=== PATIENT | male | born 1990 | race Caucasian/White ===

== ENCOUNTER 2016-09-05 23:15 | Inpatient (IN) | payer MEDICARE ==
--- NOTE | 2016-09-06 00:51 | HP ---
CIWA Score - CIWA Score Nausea/Vomitin Muscle Tremors: 4-Moderate,w/Arms Extend Anxiety: 3 Agitation: 2 Paroxysmal Sweats: 1-Minimal Palms Moist Orientation: 1-Uncertain about Date Tacttile Disturbances: 0-None Auditory Disturbances: 0-None Visual Disturbances: 0-None Headache: 2-Mild CIWA-Ar Total Score: 15 Admission ROS BHS - HPI Chief Complaint: WITHDRAWAL SYMPTOMS Allergies/Adverse Reactions: Allergies Allergy/AdvReac Type Severity Reaction Status Date / Time No Known Allergies Allergy Verified 02/19/16 02:05 History of Present Illness: 26 Y.O. MAN WITH A 6 YR HISTORY OF ALCOHOL DEPENDENCE IS SEEKING DETOX. HE IS CURRENTLY ON A MMTP. HE REPORTS HE DOES NOT HAVE A SIGNIFICANT PERIOD OF SOBRIETY. Exam Limitations: No Limitations - Ebola screening Have you traveled outside of the country in the last 21 days: No (N) Have you had contact with anyone from an Ebola affected area: No Do you have a fever: No - Review of Systems Constitutional: Chills EENT: reports: No Symptoms Reported Respiratory: reports: Shortness of Breath Cardiac: reports: No Symptoms Reported GI: reports: Constipated : reports: No Symptoms Reported Musculoskeletal: reports: No Symptoms Reported Integumentary: reports: No Symptoms Reported Neuro: reports: Tremors Endocrine: reports: No Symptoms Reported Hematology: reports: No Symptoms Reported Psychiatric: reports: Judgement Intact, Mood/Affect Appropiate, Orientated x3 Other Systems: Reviewed and Negative Patient History - Patient Medical History Hx Anemia: No Hx Asthma: No Hx Chronic Obstructive Pulmonary Disease (COPD): No Hx Cancer: No Hx Cardiac Disorders: No Hx Congestive Heart Failure: No Hx Hypertension: No Hx Hypercholesterolemia: No Hx Pacemaker: No HX Cerebrovascular Accident: No Hx Seizures: No Hx Dementia: No Hx Diabetes: No Hx Gastrointestinal Disorders: No Hx Liver Disease: No Hx Genitourinary Disorders: No Hx Sexually Transmitted Disorders: No Hx Renal Disease (ESRD): No Hx Thyroid Disease: No Hx Human Immunodeficiency Virus (HIV): No Hx Hepatitis C: Yes (NO TREATMENT ) Hx Depression: No Hx Suicide Attempt: No Hx Bipolar Disorder: No Hx Schizophrenia: No - Patient Surgical History Past Surgical History: No Hx Neurologic Surgery: No Hx Cataract Extraction: No Hx Cardiac Surgery: No Hx Lung Surgery: No Hx Breast Surgery: No Hx Breast Biopsy: No Hx Abdominal Surgery: No Hx Appendectomy: No Hx Cholecystectomy: No Hx Genitourinary Surgery: No Hx Section: No Hx Orthopedic Surgery: No Anesthesia Reaction: No - PPD History Previous Implant?: Yes Documented Results: Negative w/proof Implanted On Prior R Admission?: Yes Date: 04/26/15 Results: 0.0mm PPD to be Administered?: Yes - Reproductive History Patient is a Female of Child Bearing Age (11 -55 yrs old): No - Smoking Cessation Smoking history: Current every day smoker Have you smoked in the past 12 months: Yes Aproximately how many cigarettes per day: 4 Cigars Per Day: 0 Hx Chewing Tobacco Use: No Initiated information on smoking cessation: Yes 'Breaking Loose' booklet given: 09/06/16 - Substance & Tx. History Hx Alcohol Use: Yes Hx Substance Use: Yes (ON A MMTP ) Substance Use Type: Alcohol Hx Substance Use Treatment: Yes - Substances Abused Alcohol Route: Oral Frequency: Daily Amount used: 10 BOTTLES OF 18OZ BEER Age of first use: 19 Date of Last Use: 09/05/16 Family Disease History - Family Disease History Family Disease History: Other: Sister Admission Physical Exam BHS - Vital Signs Vital Signs: Last Vital Signs Temp Pulse Resp BP Pulse Ox 96.8 F L 99 H 17 127/87 09/06/16 02:07 09/06/16 02:07 09/06/16 02:07 09/06/16 02:07 - Physical General Appearance: Yes: Appropriately Dressed, Alcohol on Breath HEENTM: Yes: Hearing grossly Normal, Normal ENT Inspection, Normocephalic, Normal Voice Respiratory: Yes: Chest Non-Tender, Lungs Clear, Normal Breath Sounds Neck: Yes: No masses,lesions,Nodules, Trachea in good position Breast: Yes: Breast Exam Deferred Cardiology: Yes: Regular Rhythm, Regular Rate, S1, S2 Abdominal: Yes: Normal Bowel Sounds, Non Tender, Soft Genitourinary: Yes: Within Normal Limits Back: Yes: Normal Inspection Musculoskeletal: Yes: Within Normal Limits, Gait Steady Extremities: Yes: Normal Capillary Refill, Normal Inspection, Normal Range of Motion Neurological: Yes: endoscopy tech II-XII NML intact, Fully Oriented, Alert, Normal Mood/ Affect, Normal Response Integumentary: Yes: Normal Color, Dry, Warm Lymphatic: Yes: Within Normal Limits - Diagnostic (1) Alcohol dependence with uncomplicated withdrawal Current Visit: Yes Status: Chronic (2) Opioid dependence on agonist therapy Current Visit: Yes Status: Chronic Cleared for Admission [facility] - Detox or Rehab [facility] Level of Care: Medically Managed Detox Regimen/Protocol: Librium S Breath Alcohol Content Breath Alcohol Content: 0.154 Vital Signs - Vital Signs Vital Signs Refused: No Temperature: 96.8 F Temperature Source: Oral Pulse Rate: 99 Respiratory Rate: 17 Blood Pressure: 127/87 BP Location: Left Arm Blood Pressure Position: Sitting - Height Height: 5 ft 10 in - Weight Weight: 201 lb Weight Measurement Method: Standing Scale Body Mass Index (BMI): 28.8 Urine Drug Screen - Control Is Test Valid: Yes - Results Drug Screen Negative: No Urine Drug Screen Results: THC-Marijuana, GARCÍA-Cocaine, MTD-Methadone
[2016-09-06] MEDS ORDERED: MAGNESIUM CITRATE 300 ML BOTTLE PO PRN (00:55)
[2016-09-06] MEDS ORDERED: chlordiazePOXIDE HCL 25 MG CAPSULE PO PRN (00:55)
[2016-09-06] MEDS ORDERED: LOPERAMIDE HCL 2 MG CAPSULE PO PRN (00:55)
[2016-09-06] MEDS ORDERED: MAG HYDROX/AL HYDROX/SIMETH 30 ML UNIT-DOSE CUP PO PRN (00:55)
[2016-09-06] MEDS ORDERED: guaiFENesin/D-METHORPHAN HB 10 ML UNIT-DOSE CUPS PO PRN (00:55)
[2016-09-06] MEDS ORDERED: chlordiazePOXIDE HCL 25 MG CAPSULE PO ONE (00:55)
[2016-09-06] MEDS ORDERED: MAGNESIUM HYDROX 2400MG/30ML ORAL SUSPENSION 30 ML CUP PO PRN (00:55)
[2016-09-06] MEDS ORDERED: hydrOXYzine PAMOATE 50 MG CAPSULE (FP) PO PRN (00:55)
[2016-09-06] MEDS ORDERED: P-EPHED 60MG/TRIPROLIDI 2.5MG TABLET PO PRN (00:55)
[2016-09-06] MEDS ORDERED: ACETAMINOPHEN 325 MG TABLET (FP) PO PRN (00:55)
[2016-09-06] MEDS ORDERED: NICOTINE POLACRILEX 2 MG GUM BC PRN (00:55)
[2016-09-06] MEDS ORDERED: MENTHOL/PHENOL 1 EACH UD MM PRN (00:55)
[2016-09-06 01:20] VITALS: BMI 28.8
[2016-09-06] MEDS: chlordiazePOXIDE HCL 25 MG CAPSULE PO SCH ×4 (05:30→22:10)
[2016-09-06] MEDS: PRENATAL VITAMINS W/ FOLIC ACID TABLET (FP) PO SCH (10:17)
[2016-09-06] MEDS: NICOTINE 14 MG/24 HOURS TOPICAL PATCH TD SCH (10:18)
[2016-09-06] MEDS ORDERED: METHADONE HCL 10 MG TABLET PO ONE (10:22)
[2016-09-06] MEDS ORDERED: METHADONE 80 MG, METHADONE (DETOX) 20 MG PO ONE (10:45)
[2016-09-06 10:46] LABS: URINE APPEARANCE CLEAR; URINE BILIRUBIN NEGATIVE (NEGATIVE); URINE BLOOD NEGATIVE (NEGATIVE); URINE COLOR YELLOW; URINE GLUCOSE (UA) NEGATIVE (NEGATIVE); URINE KETONE NEGATIVE (NEGATIVE); URINE LEUK ESTERASE NEGATIVE (NEGATIVE); URINE NITRITE NEGATIVE (NEGATIVE); URINE PROTEIN NEGATIVE (NEGATIVE); URINE UROBILINOGEN NEGATIVE E.U./dl (0.2-1.0)
--- NOTE | 2016-09-06 11:28 | PN ---
S CIWA - CIWA Score Nausea/Vomitin Muscle Tremors: 3 Anxiety: 3 Agitation: 3 Paroxysmal Sweats: 1-Minimal Palms Moist Orientation: 0-Oriented Tacttile Disturbances: 1-Very Mild Itch/Numbness Auditory Disturbances: 1-Very Mild Visual Disturbances: 1-Very Mild Sensitivity Headache: 2-Mild CIWA-Ar Total Score: 18 BHS Progress Note (SOAP) Subjective: ALERT,IRRITABLE,ANXIOUS,INTERRUPTED SLEEP,TREMOR Objective: 09/06/16 11:27 Vital Signs Temperature 98.1 F 09/06/16 09:59 Pulse Rate 82 09/06/16 09:59 Respiratory Rate 20 09/06/16 09:59 Blood Pressure 133/84 09/06/16 09:59 O2 Sat by Pulse Oximetry (%) EKG NSR,NORMAL ECG Laboratory Last Values Urine Color Yellow 09/06/16 08:40 Urine Appearance Clear 09/06/16 08:40 Urine pH 5.0 (5.0-8.0) 09/06/16 08:40 Ur Specific [place] 1.014 (1.001-1.035) 09/06/16 08:40 Urine Protein Negative (NEGATIVE) 09/06/16 08:40 Urine Glucose (UA) Negative (NEGATIVE) 09/06/16 08:40 Urine Ketones Negative (NEGATIVE) 09/06/16 08:40 Urine Blood Negative (NEGATIVE) 09/06/16 08:40 Urine Nitrite Negative (NEGATIVE) 09/06/16 08:40 Urine Bilirubin Negative (NEGATIVE) 09/06/16 08:40 Urine Urobilinogen Negative E.U./dl (0.2-1.0) 09/06/16 08:40 Ur Leukocyte Esterase Negative (NEGATIVE) 09/06/16 08:40 LABS PENDING Assessment: 09/06/16 11:28 WITHDRAWAL SYMPTOM Plan: CONTINUE DETOX
[2016-09-06] MEDS ORDERED: METHADONE HCL 40 MG DISPERSABLE TABLET ONE (11:49)
[2016-09-06] MEDS ORDERED: METHADONE HCL 10 MG TABLET (FOR DETOX USE ONLY) ONE (11:49)
--- NOTE | 2016-09-06 18:19 | EKG ---
Test Reason : Blood Pressure : / mmHG Vent. Rate : 072 BPM Atrial Rate : 072 BPM P-R Int : 170 ms QRS Dur : 100 ms QT Int : 418 ms P-R-T Axes : 040 010 014 degrees QTc Int : 457 ms POOR DATA QUALITY, INTERPRETATION MAY BE ADVERSELY AFFECTED NORMAL SINUS RHYTHM NONSPECIFIC ST AND T WAVE ABNORMALITY NO PREVIOUS ECGS AVAILABLE Confirmed by JONNA RONQUILLO MD ([id number]) on 09/06/2016 6:18:54 PM Referred By: Confirmed By:JONNA RONQUILLO MD
[2016-09-06] MEDS: THIAMINE HCL 100 MG TABLET (FP) PO SCH (22:09)
[2016-09-06] MEDS: IBUPROFEN 400 MG TABLET (FP) PO PRN (22:11)
[2016-09-06] MEDS: diphenhydrAMINE HCL 50 MG CAPSULE PO PRN (22:19)
[2016-09-07] MEDS ORDERED: METHADONE HCL 10 MG TABLET (FOR DETOX USE ONLY) ONE (04:52)
[2016-09-07] MEDS ORDERED: METHADONE HCL 40 MG DISPERSABLE TABLET ONE (04:53)
[2016-09-07] MEDS ORDERED: chlordiazePOXIDE HCL 25 MG CAPSULE PO SCH (05:00)
[2016-09-07] MEDS: IBUPROFEN 400 MG TABLET (FP) PO PRN ×3 (05:38→22:43)
[2016-09-07] MEDS ORDERED: METHADONE 80 MG, METHADONE (DETOX) 20 MG PO SCH (06:00)
[2016-09-07] MEDS ORDERED: METHADONE HCL 10 MG TABLET PO SCH (06:00)
[2016-09-07] MEDS ORDERED: diazePAM 5 MG TABLET PO PRN (08:50)
[2016-09-07] MEDS ORDERED: diazePAM 5 MG TABLET PO ONE (08:50)
[2016-09-07 10:01] LABS: MCH 32.1 pg (25.7-33.7); MCHC 33.1 g/dl (32.0-35.9); MEAN PLT VOLUME 8.9 fl (7.5-11.1); PLATELET COUNT 192 K/MM3 (134-434); WHITE BLOOD COUNT 6.5 K/mm3 (4.0-10.0)
[2016-09-07] MEDS: NICOTINE 14 MG/24 HOURS TOPICAL PATCH TD SCH (10:15)
[2016-09-07] MEDS: PRENATAL VITAMINS W/ FOLIC ACID TABLET (FP) PO SCH (10:15)
[2016-09-07 10:35] LABS: ALBUMIN 4.3 g/dl (3.4-5.0); ANION GAP 7 (8-16); CALCIUM 9.4 mg/dL (8.5-10.1); CO2 30 mmol/L (21-32); GLUCOSE,RANDOM 70 mg/dL (74-106)
[2016-09-07 10:38] LABS: ALK PHOS 62 U/L (45-117); BILIRUBIN,TOTAL 0.5 mg/dL (0.2-1.0); SGOT/AST 120 U/L (15-37); SGPT/ALT 195 U/L (12-78); TOT PROT 8.3 g/dl (6.4-8.2)
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
[2016-09-07] MEDS: LIDOCAINE VISCOUS 2% ORAL/TOP 20 ML UNIT-DOSE CUP MM PRN ×2 (13:18→19:28)
[2016-09-07] MEDS: diazePAM 5 MG TABLET PO SCH ×2 (14:14→22:34)
[2016-09-07 18:14] VITALS: PULSE 65
[2016-09-07] MEDS: diphenhydrAMINE HCL 50 MG CAPSULE PO PRN (22:34)
[2016-09-07] MEDS: THIAMINE HCL 100 MG TABLET (FP) PO SCH (22:55)
[2016-09-07 23:33] VITALS: BP 126/74; TEMP 97.3
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
[2016-09-08] MEDS ORDERED: chlordiazePOXIDE 5 MG CAPSULE PO SCH (05:00)
[2016-09-09] MEDS ORDERED: chlordiazePOXIDE HCL 10 MG CAPSULE PO SCH (05:00)
[2016-09-09] MEDS ORDERED: diazePAM 5 MG TABLET PO SCH (10:00)
[2016-09-11] MEDS ORDERED: diazePAM 5 MG TABLET PO SCH (10:00)
--- NOTE | 2016-09-27 11:36 | DS ---
[facility] Detox Discharge Summary Admission Date: 09/06/16 Discharge Date: 09/07/16 - History Present History: Alcohol Dependence, Sedative Dependence, MMTP Pertinent Past History: denies - Physical Exam Results Vital Signs: Vital Signs Temperature 97.3 F L 09/07/16 23:32 Pulse Rate 65 09/07/16 23:32 Respiratory Rate 16 09/07/16 23:32 Blood Pressure 126/74 09/07/16 23:32 O2 Sat by Pulse Oximetry (%) Pertinent Admission Physical Exam Findings: withdrawal sx. Laboratory Tests 09/06/16 09/07/16 09/07/16 08:40 07:20 07:20 WBC 6.5 RBC 4.55 Hgb 14.6 Hct 44.2 MCV 97.0 H MCHC 33.1 RDW 13.0 Plt Count 192 MPV 8.9 Sodium 139 Potassium 4.2 Chloride 102 Carbon Dioxide 30 Anion Gap 7 L BUN 10 Creatinine 1.0 Creat Clearance w eGFR > 60 Random Glucose 70 L D Calcium 9.4 Total Bilirubin 0.5 D AST 120 H D ALT 195 H Alkaline Phosphatase 62 D Total Protein 8.3 H Albumin 4.3 Urine Color Yellow Urine Appearance Clear Urine pH 5.0 Ur Specific [place] 1.014 Urine Protein Negative Urine Glucose (UA) Negative Urine Ketones Negative Urine Blood Negative Urine Nitrite Negative Urine Bilirubin Negative Urine Urobilinogen Negative Ur Leukocyte Esterase Negative RPR Titer 09/07/16 07:20 WBC RBC Hgb Hct MCV MCHC RDW Plt Count MPV Sodium Potassium Chloride Carbon Dioxide Anion Gap BUN Creatinine Creat Clearance w eGFR Random Glucose Calcium Total Bilirubin AST ALT Alkaline Phosphatase Total Protein Albumin Urine Color Urine Appearance Urine pH Ur Specific [place] Urine Protein Urine Glucose (UA) Urine Ketones Urine Blood Urine Nitrite Urine Bilirubin Urine Urobilinogen Ur Leukocyte Esterase RPR Titer Nonreactive labs noted - Medication Discharge Medications: Ambulatory Orders NK [No Known Home Medication] 12/06/15 - Diagnosis (1) Alcohol dependence with uncomplicated withdrawal Status: Chronic (2) Nicotine dependence Status: Chronic Qualifiers: Nicotine product type: cigarettes Substance use status: uncomplicated Qualified Code(s): F17.210 - Nicotine dependence, cigarettes, uncomplicated (3) Opioid dependence on agonist therapy Status: Chronic (4) Sedative/hypnotic withdrawal without complication Status: Chronic - AMA Did Patient Leave Against Medical Advice: Yes
== END 2016-09-07 23:25 | disposition left against medical advice (07) | DRG 770 ==
LOC: YASAS 23:15 → Y6N 09-06 00:51
PROVIDERS: ADMIT Internal Medicine; ATTEND Internal Medicine
PROC: HZ2ZZZZ Detoxification Services for Substance Abuse Treatment (ICD-10-PCS; principal; 2016-09-07)
DX: F11.20 Opioid dependence, uncomplicated (principal); F10.230 Alcohol dependence with withdrawal, uncomplicated
CPT/HCPCS: 36415; 80053; 81003; 85027; 86593; 93005; 93010

== ENCOUNTER 2018-06-29 08:48 | Inpatient (IN) | payer OTHER ==
[2018-06-29 09:20] VITALS: BMI 33.0
--- NOTE | 2018-06-29 09:43 | HP ---
CIWA Score Nausea/Vomitin-Mild Nausea/No Vomiting Muscle Tremors: 1-None Visible, but Benjamin Anxiety: 4-Mod. Anxious/Guarded Agitation: 0-Normal Activity Paroxysmal Sweats: No Perspiration Orientation: 0-Oriented Tacttile Disturbances: 0-None Auditory Disturbances: 0-None Visual Disturbances: 0-None Headache: 2-Mild CIWA-Ar Total Score: 8 - Admission Criteria OASAS Guidelines: Admission for Medically Managed Detox: Requires at least one of the followin. CIWA greater than 12 2. Seizures within the past 24 hours 3. Delirium tremens within the past 24 hours 4. Hallucinations within the past 24 hours 5. Acute intervention needed for co occurring medical disorder 6. Acute intervention needed for co occurring psychiatric disorder 7. Severe withdrawal that cannot be handled at a lower level of care (continued vomiting, continued diarrhea, abnormal vital signs) requiring intravenous medication and/or fluids 8. Admission ROS S - HPI Allergies/Adverse Reactions: Allergies Allergy/AdvReac Type Severity Reaction Status Date / Time No Known Allergies Allergy Verified 06/29/18 10:04 History of Present Illness: pt here requesting detox from etoh use , reports daily 12-pk beer and sometimes a case x over 5 months , reports depression increased , denies SI / HI . Latest use last night , reports tremors if not drinking , anxiety , sweating , chills , cannot function if he does not drink . Denies seizures, + blackouts , + falls while intoxication latest several months ago denies injuries to self or others, does not drive . Denies legal issues related to his alcohol use, goes to NA/ AA meetings . in MMTP x 3 years ( [facility] ) current daily dose 90 mg , sober from heroin x 1 year . Previously at this facility - per patient in 2016 . illicits : cannabis , not daily utox + THC, MTD TRAVON 0.079 tobacco : 08/06 ppd , requesting nrt w/ patch . pmhx :denies pshx : denies meds : as above psych : denies Exam Limitations: No Limitations - Ebola screening Have you traveled outside of the country in the last 21 days: No Have you had contact with anyone from an Ebola affected area: No Have you been sick,other than usual withdrawal symptoms: No Do you have a fever: No - Review of Systems Constitutional: See HPI, Loss of Appetite EENT: reports: No Symptoms Reported Respiratory: reports: No Symptoms reported Cardiac: reports: No Symptoms Reported GI: reports: No Symptoms Reported : reports: No Symptoms Reported Musculoskeletal: reports: No Symptoms Reported Neuro: reports: Headache Psychiatric: reports: Orientated x3, Depressed Patient History - Patient Medical History Hx Anemia: No Hx Asthma: No Hx Chronic Obstructive Pulmonary Disease (COPD): No Hx Cancer: No Hx Cardiac Disorders: No Hx Congestive Heart Failure: No Hx Hypertension: No Hx Hypercholesterolemia: No Hx Pacemaker: No HX Cerebrovascular Accident: No Hx Seizures: No Hx Dementia: No Hx Diabetes: No Hx Gastrointestinal Disorders: No Hx Liver Disease: No Hx Genitourinary Disorders: No Hx Sexually Transmitted Disorders: No Hx Renal Disease (ESRD): No Hx Thyroid Disease: No Hx Human Immunodeficiency Virus (HIV): No Hx Hepatitis C: Yes (NO TREATMENT ) Hx Depression: No Hx Suicide Attempt: No Hx Bipolar Disorder: No Hx Schizophrenia: No - Patient Surgical History Past Surgical History: No Hx Neurologic Surgery: No Hx Cataract Extraction: No Hx Cardiac Surgery: No Hx Lung Surgery: No Hx Breast Surgery: No Hx Breast Biopsy: No Hx Abdominal Surgery: No Hx Appendectomy: No Hx Cholecystectomy: No Hx Genitourinary Surgery: No Hx Section: No Hx Orthopedic Surgery: No Anesthesia Reaction: No - PPD History Date: 04/26/15 Results: 0.0mm - Smoking Cessation Smoking history: Current every day smoker Have you smoked in the past 12 months: Yes Aproximately how many cigarettes per day: 4 Cigars Per Day: 0 Hx Chewing Tobacco Use: No Initiated information on smoking cessation: No - Substances Abused Alcohol-beer/cognac Route: Oral Frequency: Daily Amount used: 2-6 pks./2 pts. Age of first use: 22 Date of Last Use: 06/28/18 Family Disease History - Family Disease History Family Disease History: Diabetes: Grandparent (htn : maternal aunts ), [place]: Grandparent, Other: Grandparent, Sister Admission Physical Exam BHS - Vital Signs Vital Signs: Vital Signs - 24 hr 06/29/18 09:16 Temperature 98.3 F Pulse Rate 90 Respiratory 17 Rate Blood Pressure 129/81 - Physical General Appearance: Yes: Within Normal Limits HEENTM: Yes: EOMI, Hearing grossly Normal, Normocephalic, Normal Voice, Pharynx Normal Respiratory: Yes: Chest Non-Tender, Lungs Clear, Normal Breath Sounds Neck: Yes: No masses,lesions,Nodules, Trachea in good position Cardiology: Yes: Regular Rhythm, Regular Rate, S1, S2 Abdominal: Yes: Normal Bowel Sounds, Non Tender Genitourinary: Yes: Within Normal Limits Back: Yes: Normal Inspection Musculoskeletal: Yes: full range of Motion, Gait Steady Extremities: Yes: Normal Capillary Refill, Normal Inspection, Tremors Neurological: Yes: Fully Oriented, Motor Strength 5/5, Normal Mood/Affect Integumentary: Yes: Normal Color, Dry, Warm - Diagnostic (1) Alcohol dependence with uncomplicated withdrawal Current Visit: No Status: Acute (2) Nicotine dependence Current Visit: No Status: Chronic Qualifiers: Nicotine product type: cigarettes Substance use status: uncomplicated Qualified Code(s): F17.210 - Nicotine dependence, cigarettes, uncomplicated (3) Opioid dependence on agonist therapy Current Visit: No Status: Chronic BHS Breath Alcohol Content Breath Alcohol Content: 0.079 Urine Drug Screen - Results Drug Screen Negative: No Urine Drug Screen Results: THC-Marijuana, MTD-Methadone
[2018-06-29] MEDS ORDERED: guaiFENesin/D-METHORPHAN HB 10 ML UNIT-DOSE CUPS PO PRN (09:48)
[2018-06-29] MEDS ORDERED: P-EPHED 60MG/TRIPROLIDI 2.5MG TABLET PO PRN (09:48)
[2018-06-29] MEDS ORDERED: MAGNESIUM CITRATE 300 ML BOTTLE PO PRN (09:48)
[2018-06-29] MEDS ORDERED: MENTHOL/PHENOL 1 EACH UD MM PRN (09:48)
[2018-06-29] MEDS ORDERED: IBUPROFEN 400 MG TABLET (FP) PO PRN (09:48)
[2018-06-29] MEDS ORDERED: MAGNESIUM HYDROX 2400MG/30ML ORAL SUSPENSION 30 ML CUP PO PRN (09:48)
[2018-06-29] MEDS ORDERED: ACETAMINOPHEN 325 MG TABLET (FP) PO PRN (09:48)
[2018-06-29] MEDS ORDERED: MAG HYDROX/AL HYDROX/SIMETH 30 ML UNIT-DOSE CUP PO PRN (09:48)
[2018-06-29] MEDS: chlordiazePOXIDE HCL 25 MG CAPSULE PO PRN (12:13)
[2018-06-29] MEDS: PRENATAL VITAMINS W/ FOLIC ACID TABLET (FP) PO SCH (12:14)
[2018-06-29] MEDS: NICOTINE 7 MG/24 HOURS TOPICAL PATCH TD SCH (12:16)
--- NOTE | 2018-06-29 15:38 | HP ---
CIWA Score Nausea/Vomitin-Mild Nausea/No Vomiting Muscle Tremors: 1-None Visible, but [place] Anxiety: 4-Mod. Anxious/Guarded Agitation: 0-Normal Activity Paroxysmal Sweats: No Perspiration Orientation: 0-Oriented Tacttile Disturbances: 0-None Auditory Disturbances: 0-None Visual Disturbances: 0-None Headache: 2-Mild CIWA-Ar Total Score: 8 - Admission Criteria OASAS Guidelines: Admission for Medically Managed Detox: Requires at least one of the followin. CIWA greater than 12 2. Seizures within the past 24 hours 3. Delirium tremens within the past 24 hours 4. Hallucinations within the past 24 hours 5. Acute intervention needed for co occurring medical disorder 6. Acute intervention needed for co occurring psychiatric disorder 7. Severe withdrawal that cannot be handled at a lower level of care (continued vomiting, continued diarrhea, abnormal vital signs) requiring intravenous medication and/or fluids 8. Admission ROS [facility] Allergies/Adverse Reactions: Allergies Allergy/AdvReac Type Severity Reaction Status Date / Time No Known Allergies Allergy Verified 06/29/18 10:04 - Ebola screening Have you traveled outside of the country in the last 21 days: No Have you had contact with anyone from an Ebola affected area: No Have you been sick,other than usual withdrawal symptoms: No Do you have a fever: No Patient History - Patient Medical History Hx Anemia: No Hx Asthma: No Hx Chronic Obstructive Pulmonary Disease (COPD): No Hx Cancer: No Hx Cardiac Disorders: No Hx Congestive Heart Failure: No Hx Hypertension: No Hx Hypercholesterolemia: No Hx Pacemaker: No HX Cerebrovascular Accident: No Hx Seizures: No Hx Dementia: No Hx Diabetes: No Hx Gastrointestinal Disorders: No Hx Liver Disease: No Hx Genitourinary Disorders: No Hx Sexually Transmitted Disorders: No Hx Renal Disease (ESRD): No Hx Thyroid Disease: No Hx Human Immunodeficiency Virus (HIV): No Hx Hepatitis C: Yes (NO TREATMENT ) Hx Depression: No Hx Suicide Attempt: No Hx Bipolar Disorder: No Hx Schizophrenia: No - Patient Surgical History Past Surgical History: No Hx Neurologic Surgery: No Hx Cataract Extraction: No Hx Cardiac Surgery: No Hx Lung Surgery: No Hx Breast Surgery: No Hx Breast Biopsy: No Hx Abdominal Surgery: No Hx Appendectomy: No Hx Cholecystectomy: No Hx Genitourinary Surgery: No Hx Section: No Hx Orthopedic Surgery: No Anesthesia Reaction: No - PPD History Previous Implant?: Yes Documented Results: Negative w/proof Implanted On Prior [facility] Admission?: Yes Date: 05/09/18 Results: 0 mm - Smoking Cessation Smoking history: Current every day smoker Have you smoked in the past 12 months: Yes Aproximately how many cigarettes per day: 5 Cigars Per Day: 0 Hx Chewing Tobacco Use: No Initiated information on smoking cessation: No - Substances Abused Alcohol-beer/cognac Route: Oral Frequency: Daily Amount used: 2-6 pks./2 pts. Age of first use: 22 Date of Last Use: 06/28/18 Family Disease History - Family Disease History Family Disease History: Diabetes: Grandparent (htn : maternal aunts ), [place]: Grandparent, Other: Grandparent, Sister Admission Physical Exam BHS - Vital Signs Vital Signs: Vital Signs - 24 hr 06/29/18 06/29/18 09:16 13:29 Temperature 98.3 F 99.5 F Pulse Rate 90 85 Respiratory 17 18 Rate Blood Pressure 129/81 128/87 - Diagnostic (1) Alcohol dependence with uncomplicated withdrawal Current Visit: No Status: Acute (2) Nicotine dependence Current Visit: No Status: Chronic Qualifiers: Nicotine product type: cigarettes Substance use status: uncomplicated Qualified Code(s): F17.210 - Nicotine dependence, cigarettes, uncomplicated (3) Opioid dependence on agonist therapy Current Visit: No Status: Chronic BHS Breath Alcohol Content Breath Alcohol Content: 0.079 Urine Drug Screen - Results Drug Screen Negative: No Urine Drug Screen Results: THC-Marijuana, MTD-Methadone
[2018-06-29] MEDS: chlordiazePOXIDE HCL 25 MG CAPSULE PO SCH ×2 (16:56→22:16)
[2018-06-29 17:09] LABS: URINE APPEARANCE CLEAR; URINE BILIRUBIN NEGATIVE (<2.0 mg/dL); URINE COLOR YELLOW; URINE GLUCOSE (UA) NEGATIVE (NEGATIVE); URINE KETONE NEGATIVE (NEGATIVE); URINE LEUK ESTERASE NEGATIVE (NEGATIVE); URINE NITRITE NEGATIVE (NEGATIVE); URINE PROTEIN NEGATIVE (NEGATIVE); URINE UROBILINOGEN NEGATIVE mg/dL (0.2-1.0)
[2018-06-29] MEDS: MELATONIN 5 MG TABLETS PO PRN (22:16)
[2018-06-29] MEDS: THIAMINE HCL 100 MG TABLET (FP) PO SCH (22:16)
[2018-06-30] MEDS ORDERED: METHADONE HCL 10 MG TABLET ONE (05:33)
[2018-06-30] MEDS ORDERED: METHADONE HCL 40 MG DISPERSABLE TABLET ONE (05:33)
[2018-06-30] MEDS: chlordiazePOXIDE HCL 25 MG CAPSULE PO SCH ×4 (05:40→22:06)
[2018-06-30] MEDS: METHADONE 80 MG, METHADONE 10 MG PO SCH (05:40)
[2018-06-30] MEDS ORDERED: METHADONE HCL 10 MG TABLET PO SCH (06:00)
[2018-06-30] MEDS: PRENATAL VITAMINS W/ FOLIC ACID TABLET (FP) PO SCH (10:08)
[2018-06-30] MEDS: NICOTINE 7 MG/24 HOURS TOPICAL PATCH TD SCH (10:08)
[2018-06-30 10:43] LABS: HEMATOCRIT 42.9 % (35.4-49); HEMOGLOBIN 14.2 GM/dL (11.7-16.9); MCH 30.9 pg (25.7-33.7); MCHC 33.1 g/dl (32.0-35.9); MEAN CELL VOLUME 93.3 fl (80-96); MEAN PLT VOLUME 9.3 fl (7.5-11.1); PLATELET COUNT 172 K/MM3 (134-434); WHITE BLOOD COUNT 6.2 K/mm3 (4.0-10.0)
--- NOTE | 2018-06-30 11:10 | PN ---
S CIWA - CIWA Score Nausea/Vomitin-No Nausea/No Vomiting Muscle Tremors: 4-Moderate,w/Arms Extend Anxiety: 3 Agitation: 3 Paroxysmal Sweats: 3 Orientation: 0-Oriented Tacttile Disturbances: 0-None Auditory Disturbances: 0-None Visual Disturbances: 0-None Headache: 0-None Present CIWA-Ar Total Score: 13 BHS Progress Note (SOAP) Subjective: sweats shakes constipation nausea body aches Objective: 06/30/18 11:10 Vital Signs Temperature 98.0 F 06/30/18 09:16 Pulse Rate 85 06/30/18 09:16 Respiratory Rate 18 06/30/18 09:16 Blood Pressure 141/95 06/30/18 09:16 O2 Sat by Pulse Oximetry (%) Laboratory Tests 06/29/18 06/29/18 06/30/18 11:25 12:35 06:00 WBC 6.2 RBC 4.60 Hgb 14.2 Hct 42.9 MCV 93.3 MCH 30.9 MCHC 33.1 RDW 14.0 Plt Count 172 D MPV 9.3 Urine Color Yellow Urine Appearance Clear Urine pH 5.0 Ur Specific [place] 1.024 Urine Protein Negative Urine Glucose (UA) Negative Urine Ketones Negative Urine Blood Negative Urine Nitrite Negative Urine Bilirubin Negative Urine Urobilinogen Negative Ur Leukocyte Esterase Negative HIV 1&2 Antibody Screen Negative HIV P24 Antigen Negative rest of labs pending aaox3 ambulating no acute distress Assessment: 06/30/18 11:11 withdrawal sx Plan: continue detox increase fluids zofran SL prn MOM ensure bid
[2018-06-30] MEDS ORDERED: ONDANSETRON *ODT* 4 MG TABLET SL PRN (11:15)
[2018-06-30 11:23] LABS: ALBUMIN 4.2 g/dl (3.4-5.0); ALK PHOS 62 U/L (45-117); ANION GAP 10 MMOL/L (8-16); BILIRUBIN,TOTAL 0.5 mg/dL (0.2-1); BLOOD UREA NITROGEN 10 mg/dL (7-18); CALCIUM 8.7 mg/dL (8.5-10.1); CHLORIDE 104 mmol/L (98-107); CO2 25 mmol/L (21-32); CREATININE 0.9 mg/dL (0.55-1.3); GLUCOSE,RANDOM 76 mg/dL (74-106); POTASSIUM 4.4 mmol/L (3.5-5.1); SGOT/AST 147 U/L (15-37); SGPT/ALT 245 U/L (13-61); SODIUM 139 mmol/L (136-145); TOT PROT 8.3 g/dl (6.4-8.2)
[2018-06-30] MEDS: THIAMINE HCL 100 MG TABLET (FP) PO SCH (22:06)
[2018-06-30] MEDS: MELATONIN 5 MG TABLETS PO PRN (22:07)
[2018-07-01] MEDS ORDERED: METHADONE HCL 40 MG DISPERSABLE TABLET ONE (04:13)
[2018-07-01] MEDS ORDERED: METHADONE HCL 10 MG TABLET ONE (04:13)
[2018-07-01] MEDS: METHADONE 80 MG, METHADONE 10 MG PO SCH (05:38)
[2018-07-01] MEDS: chlordiazePOXIDE HCL 25 MG CAPSULE PO SCH ×2 (05:39→10:11)
--- NOTE | 2018-07-01 09:41 | PN ---
[facility] CIWA - CIWA Score Nausea/Vomitin-No Nausea/No Vomiting Muscle Tremors: 3 Anxiety: 3 Agitation: 2 Paroxysmal Sweats: 3 Orientation: 0-Oriented Tacttile Disturbances: 0-None Auditory Disturbances: 0-None Visual Disturbances: 0-None Headache: 0-None Present CIWA-Ar Total Score: 11 BHS Progress Note (SOAP) Subjective: shakes sweats interrupted sleep agitation Objective: 07/01/18 09:49 Vital Signs Temperature 97.7 F 07/01/18 07:06 Pulse Rate 63 07/01/18 07:06 Respiratory Rate 18 07/01/18 07:06 Blood Pressure 111/64 07/01/18 07:06 O2 Sat by Pulse Oximetry (%) Laboratory Tests 06/29/18 06/29/18 06/30/18 11:25 12:35 06:00 WBC 6.2 RBC 4.60 Hgb 14.2 Hct 42.9 MCV 93.3 MCH 30.9 MCHC 33.1 RDW 14.0 Plt Count 172 D MPV 9.3 Sodium Potassium Chloride Carbon Dioxide Anion Gap BUN Creatinine Creat Clearance w eGFR Random Glucose Calcium Total Bilirubin AST ALT Alkaline Phosphatase Total Protein Albumin Urine Color Yellow Urine Appearance Clear Urine pH 5.0 Ur Specific [place] 1.024 Urine Protein Negative Urine Glucose (UA) Negative Urine Ketones Negative Urine Blood Negative Urine Nitrite Negative Urine Bilirubin Negative Urine Urobilinogen Negative Ur Leukocyte Esterase Negative RPR Titer HIV 1&2 Antibody Screen Negative HIV P24 Antigen Negative 06/30/18 06/30/18 06:00 06:00 WBC RBC Hgb Hct MCV MCH MCHC RDW Plt Count MPV Sodium 139 Potassium 4.4 Chloride 104 Carbon Dioxide 25 Anion Gap 10 BUN 10 Creatinine 0.9 Creat Clearance w eGFR > 60 Random Glucose 76 Calcium 8.7 Total Bilirubin 0.5 AST 147 H ALT 245 H Alkaline Phosphatase 62 Total Protein 8.3 H Albumin 4.2 Urine Color Urine Appearance Urine pH Ur Specific [place] Urine Protein Urine Glucose (UA) Urine Ketones Urine Blood Urine Nitrite Urine Bilirubin Urine Urobilinogen Ur Leukocyte Esterase RPR Titer Nonreactive HIV 1&2 Antibody Screen HIV P24 Antigen elevated ast/alt; tylenol d/c repeat labs aaox3 ambulating no acute distress Assessment: 07/01/18 09:51 withdrawal sx Plan: continue detox increase fluids pending repeated labs
[2018-07-01] MEDS: PRENATAL VITAMINS W/ FOLIC ACID TABLET (FP) PO SCH (10:11)
[2018-07-01] MEDS: NICOTINE 7 MG/24 HOURS TOPICAL PATCH TD SCH (10:11)
[2018-07-01] MEDS: chlordiazePOXIDE 5 MG CAPSULE PO SCH ×2 (17:10→23:22)
[2018-07-01] MEDS: chlordiazePOXIDE HCL 25 MG CAPSULE PO PRN (21:05)
[2018-07-01] MEDS: THIAMINE HCL 100 MG TABLET (FP) PO SCH (22:36)
[2018-07-01] MEDS: MELATONIN 5 MG TABLETS PO PRN (22:36)
[2018-07-02] MEDS ORDERED: METHADONE HCL 40 MG DISPERSABLE TABLET ONE (05:17)
[2018-07-02] MEDS ORDERED: METHADONE HCL 10 MG TABLET ONE (05:18)
[2018-07-02] MEDS: METHADONE 80 MG, METHADONE 10 MG PO SCH (06:03)
[2018-07-02] MEDS: chlordiazePOXIDE 5 MG CAPSULE PO SCH ×2 (06:05→10:09)
[2018-07-02] MEDS: PRENATAL VITAMINS W/ FOLIC ACID TABLET (FP) PO SCH (10:09)
[2018-07-02] MEDS: NICOTINE 7 MG/24 HOURS TOPICAL PATCH TD SCH (10:09)
--- NOTE | 2018-07-02 10:47 | PN ---
BHS Progress Note (SOAP) Subjective: sweats anxiety Objective: 07/02/18 10:46 Vital Signs Temperature 98.2 F 07/02/18 10:04 Pulse Rate 80 07/02/18 10:04 Respiratory Rate 18 07/02/18 10:04 Blood Pressure 109/62 07/02/18 10:04 O2 Sat by Pulse Oximetry (%) Laboratory Tests 06/29/18 06/29/18 06/30/18 11:25 12:35 06:00 WBC 6.2 RBC 4.60 Hgb 14.2 Hct 42.9 MCV 93.3 MCH 30.9 MCHC 33.1 RDW 14.0 Plt Count 172 D MPV 9.3 Sodium Potassium Chloride Carbon Dioxide Anion Gap BUN Creatinine Creat Clearance w eGFR Random Glucose Calcium Total Bilirubin AST ALT Alkaline Phosphatase Total Protein Albumin Urine Color Yellow Urine Appearance Clear Urine pH 5.0 Ur Specific [place] 1.024 Urine Protein Negative Urine Glucose (UA) Negative Urine Ketones Negative Urine Blood Negative Urine Nitrite Negative Urine Bilirubin Negative Urine Urobilinogen Negative Ur Leukocyte Esterase Negative RPR Titer HIV 1&2 Antibody Screen Negative HIV P24 Antigen Negative 06/30/18 06/30/18 06:00 06:00 WBC RBC Hgb Hct MCV MCH MCHC RDW Plt Count MPV Sodium 139 Potassium 4.4 Chloride 104 Carbon Dioxide 25 Anion Gap 10 BUN 10 Creatinine 0.9 Creat Clearance w eGFR > 60 Random Glucose 76 Calcium 8.7 Total Bilirubin 0.5 AST 147 H ALT 245 H Alkaline Phosphatase 62 Total Protein 8.3 H Albumin 4.2 Urine Color Urine Appearance Urine pH Ur Specific [place] Urine Protein Urine Glucose (UA) Urine Ketones Urine Blood Urine Nitrite Urine Bilirubin Urine Urobilinogen Ur Leukocyte Esterase RPR Titer Nonreactive HIV 1&2 Antibody Screen HIV P24 Antigen repeated ast/alt labs pending aaox3 ambulating no acute distress Assessment: 07/02/18 10:47 mild withdrawal sx Plan: continue detox increase fluids f/u pending labs d/c in am
[2018-07-02 11:16] LABS: SGOT/AST 126 U/L (15-37); SGPT/ALT 194 U/L (13-61)
[2018-07-02] MEDS: chlordiazePOXIDE HCL 10 MG CAPSULE PO SCH ×2 (17:41→22:43)
[2018-07-02] MEDS: MELATONIN 5 MG TABLETS PO PRN (22:43)
[2018-07-02] MEDS: THIAMINE HCL 100 MG TABLET (FP) PO SCH (22:43)
[2018-07-03] MEDS ORDERED: METHADONE HCL 10 MG TABLET ONE (04:51)
[2018-07-03] MEDS ORDERED: METHADONE HCL 40 MG DISPERSABLE TABLET ONE (04:51)
[2018-07-03] MEDS: chlordiazePOXIDE HCL 10 MG CAPSULE PO SCH ×2 (05:20→10:14)
[2018-07-03] MEDS: METHADONE 80 MG, METHADONE 10 MG PO SCH (05:20)
[2018-07-03] MEDS: PRENATAL VITAMINS W/ FOLIC ACID TABLET (FP) PO SCH (10:14)
[2018-07-03] MEDS: NICOTINE 7 MG/24 HOURS TOPICAL PATCH TD SCH (10:14)
[2018-07-03 10:40] VITALS: BP 132/81; PULSE 98; TEMP 97.3
--- NOTE | 2018-07-03 10:55 | PN ---
BHS Progress Note (SOAP) Subjective: DENIES ANY COMPLAINTS REQUESTING TO STAY ON UNIT TILL NOON WHEN PARENTS WILL COME Objective: 07/03/18 10:53 A & O X3 IN NO DISTRESS Vital Signs Temperature 97.3 F L 07/03/18 10:39 Pulse Rate 98 H 07/03/18 10:39 Respiratory Rate 18 07/03/18 10:39 Blood Pressure 132/81 07/03/18 10:39 O2 Sat by Pulse Oximetry (%) Assessment: 07/03/18 10:54 COMPLETED DETOX Plan: FOR DISCHARGE
--- NOTE | 2018-07-03 11:00 | DS ---
[facility] Detox Discharge Summary Admission Date: 06/29/18 Discharge Date: 07/03/18 - History Additional Comments: PT BEING DISCHARGED HOME WILL DO AFTERCARE BY ATTENDING REHAB SOON HE GETS A BED WILL STAY ON UNIT TODAY TILL NOON TILL PARENTS COME FOR HIM DENIES HOME MEDS WILL CONTINUE WITH HIS METHADONE PROGRAM - Physical Exam Results Vital Signs: Vital Signs Temperature 97.3 F L 07/03/18 10:39 Pulse Rate 98 H 07/03/18 10:39 Respiratory Rate 18 07/03/18 10:39 Blood Pressure 132/81 07/03/18 10:39 O2 Sat by Pulse Oximetry (%) Pertinent Admission Physical Exam Findings: WITHDRAWAL SX - Treatment Hospital Course: Detox Protocol Followed, Detoxed Safely, Responded well, Discharged Condition Good - Medication Discharge Medications: Ambulatory Orders NK [No Known Home Medication] 12/06/15 - Diagnosis (1) Alcohol dependence with uncomplicated withdrawal Current Visit: Yes Status: Chronic (2) Methadone maintenance therapy patient Current Visit: Yes Status: Chronic (3) Alcohol induced sleep disorders Current Visit: No Status: Acute (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
== END 2018-07-03 12:51 | disposition home or self-care (01) | DRG 773 ==
LOC: YASAS 08:48 → Y6N 10:57
PROC: HZ2ZZZZ Detoxification Services for Substance Abuse Treatment (ICD-10-PCS; principal; 2018-06-29)
DX: F10.230 Alcohol dependence with withdrawal, uncomplicated (principal); F11.20 Opioid dependence, uncomplicated; F17.210 Nicotine dependence, cigarettes, uncomplicated; F10.282 Alcohol dependence with alcohol-induced sleep disorder; F10.280 Alcohol dependence with alcohol-induced anxiety disorder; B18.2 Chronic viral hepatitis C
CPT/HCPCS: 36415; 80053; 81003; 84450; 84460; 85027; 86593; 87389

== ENCOUNTER 2018-07-06 11:03 | Inpatient (IN) | payer OTHER ==
[2018-07-06 11:17] VITALS: BMI 33.7
--- NOTE | 2018-07-06 11:34 | HP ---
[facility] Rehab Assess/Revision - Admission History Admitted to Rehab from: [facility] [address] [place] Date of Admission to Rehab: 07/06/18 - Vital signs Vital Signs: Vital Signs Period Temp Pulse Resp BP Sys/Maria Pulse Ox Last 24 Hr 97.2 F 87 18 119/71 - Findings Detox History & Physical reviewed: Yes Concur with findings: Yes Comments/Additional Findings: for rehab as protocol. admitted to detox completed at [facility] from 06/29/18 to 07/03/18. mmtp 90 mgs/day,last medicated today Inpatient Rehab Admission - Initial Determination Are CD services needed?: Yes Free of communicable disease: Yes Not in need of hospitalization: Yes - Rehab Admission Criteria Previous failed treatment: Yes Poor recovery environment: Yes Comorbidities: Yes Lacks judgement: No Patient is meeting Inpatient Rehab admission criteria:: Yes
[2018-07-06] MEDS ORDERED: MAGNESIUM HYDROX 2400MG/30ML ORAL SUSPENSION 30 ML CUP PO PRN (11:39)
[2018-07-06] MEDS ORDERED: MAG HYDROX/AL HYDROX/SIMETH 30 ML UNIT-DOSE CUP PO PRN (11:39)
[2018-07-06] MEDS ORDERED: ACETAMINOPHEN 325 MG TABLET (FP) PO PRN (11:39)
[2018-07-06] MEDS ORDERED: LOPERAMIDE HCL 2 MG CAPSULE PO PRN (11:39)
[2018-07-06] MEDS ORDERED: MAGNESIUM CITRATE 300 ML BOTTLE PO PRN (11:39)
[2018-07-06] MEDS ORDERED: IBUPROFEN 400 MG TABLET (FP) PO PRN (11:39)
[2018-07-06] MEDS: NICOTINE 14 MG/24 HOURS TOPICAL PATCH TD SCH (13:49)
--- NOTE | 2018-07-06 16:09 | HP ---
Psychiatrist Admission - Data Date of interview: 07/06/18 Admission source: [facility] Identifying data: Patient is a 28 year old single male, without children, unemployed, and supported/living with parents. This is one of multiple admissions to rehab for patient. Patient admitted to for alcohol dependence. Medical History: denies. endorses good health. Psychiatric History: Patient's only psychiatric contact is at detox/rehab facilites and with Dr. Paniagua in the [facility] clinic. States he saw Dr. Paniagua to address anxiety/depression and was prescribed seroquel 50mg BID. Patient was admitted to the detox/rehab unit at [facility] in December/January of 2018 and was prescribed seroquel 50mg BID and vistaril 50mg prn for anxiety. States the medication were effective and is requesting to restart medications while in rehab. Last accepted psychotropic medications in January of 2018. He is currently on methadone maintence of 90mg daily at the methadone clinic at [facility]. At present, he reports feeling depressed due to h/o substance dependence and unemployment. Physical/Sexual Abuse/Trauma History: denies. Vital Signs: Vital Signs - 24 hr 07/06/18 11:14 Temperature 97.2 F L Pulse Rate 87 Respiratory 18 Rate Blood Pressure 119/71 Allergies/Adverse Reactions: Allergies Allergy/AdvReac Type Severity Reaction Status Date / Time No Known Allergies Allergy Verified 07/06/18 11:26 Date of last physical exam: 07/06/18 Concur with the findings of this exam: Yes - Substance Abuse/Tx History Hx Alcohol Use: Yes (12 beers a day) Hx Substance Use: Yes (marijuana- varies) Substance Use Type: Marijuana Hx Substance Use Treatment: Yes ([facility] and [facility]) Mental Status Exam - Mental Status Exam Alert and Oriented to: Time, Place, Person Cognitive Function: Good Patient Appearance: Well Groomed Mood: Hopeful Affect: Appropriate Patient Behavior: Appropriate, Cooperative Speech Pattern: Clear, Appropriate Voice Loudness: Normal Thought Process: Intact, Goal Oriented Thought Disorder: Not Present Hallucinations: Denies Suicidal Ideation: Denies Homicidal Ideation: Denies Insight/Judgement: Poor Sleep: Poorly Appetite: Fair Muscle strength/Tone: Normal Gait/Station: Normal Psychiatric Findings - Problem List ([place] 1, 2,3) (1) Alcohol dependence Current Visit: Yes Status: Acute (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 Rehab in progress. Will initiate Seroquel 50mg qhs. Benefits and side effects discussed. Verbal consent given.
[2018-07-06] MEDS: hydrOXYzine PAMOATE 50 MG CAPSULE (FP) PO PRN (16:41)
[2018-07-06] MEDS: QUEtiapine FUMARATE 50 MG TABLET PO SCH (21:29)
[2018-07-06] MEDS: THIAMINE HCL 100 MG TABLET (FP) PO SCH (21:29)
[2018-07-06] MEDS ORDERED: MELATONIN 5 MG TABLETS PO PRN (22:00)
[2018-07-07] MEDS ORDERED: METHADONE HCL 10 MG TABLET ONE (05:46)
[2018-07-07] MEDS ORDERED: METHADONE HCL 40 MG DISPERSABLE TABLET ONE (05:46)
[2018-07-07] MEDS ORDERED: METHADONE HCL 10 MG TABLET PO SCH (06:00)
[2018-07-07] MEDS: METHADONE 80 MG, METHADONE 10 MG PO SCH (06:18)
[2018-07-07] MEDS: hydrOXYzine PAMOATE 50 MG CAPSULE (FP) PO PRN ×4 (06:19→21:10)
[2018-07-07] MEDS: NICOTINE 14 MG/24 HOURS TOPICAL PATCH TD SCH (10:20)
[2018-07-07] MEDS: PRENATAL VITAMINS W/ FOLIC ACID TABLET (FP) PO SCH (10:20)
[2018-07-07] MEDS: THIAMINE HCL 100 MG TABLET (FP) PO SCH (21:10)
[2018-07-07] MEDS: QUEtiapine FUMARATE 50 MG TABLET PO SCH (21:10)
[2018-07-08] MEDS ORDERED: METHADONE HCL 10 MG TABLET ONE (04:42)
[2018-07-08] MEDS ORDERED: METHADONE HCL 40 MG DISPERSABLE TABLET ONE (04:43)
[2018-07-08] MEDS: METHADONE 80 MG, METHADONE 10 MG PO SCH (06:22)
[2018-07-08] MEDS: hydrOXYzine PAMOATE 50 MG CAPSULE (FP) PO PRN ×4 (06:23→21:12)
[2018-07-08] MEDS: NICOTINE 14 MG/24 HOURS TOPICAL PATCH TD SCH (09:51)
[2018-07-08] MEDS: PRENATAL VITAMINS W/ FOLIC ACID TABLET (FP) PO SCH (09:51)
[2018-07-08] MEDS: QUEtiapine FUMARATE 50 MG TABLET PO SCH (21:12)
[2018-07-08] MEDS: THIAMINE HCL 100 MG TABLET (FP) PO SCH (21:12)
[2018-07-09] MEDS ORDERED: METHADONE HCL 40 MG DISPERSABLE TABLET ONE (05:41)
[2018-07-09] MEDS ORDERED: METHADONE HCL 10 MG TABLET ONE (05:41)
[2018-07-09] MEDS: hydrOXYzine PAMOATE 50 MG CAPSULE (FP) PO PRN ×3 (06:25→21:13)
[2018-07-09] MEDS: METHADONE 80 MG, METHADONE 10 MG PO SCH (06:26)
[2018-07-09] MEDS: PRENATAL VITAMINS W/ FOLIC ACID TABLET (FP) PO SCH (10:02)
[2018-07-09] MEDS: NICOTINE 14 MG/24 HOURS TOPICAL PATCH TD SCH (10:02)
[2018-07-09] MEDS: THIAMINE HCL 100 MG TABLET (FP) PO SCH (21:13)
[2018-07-09] MEDS: QUEtiapine FUMARATE 50 MG TABLET PO SCH (21:13)
[2018-07-09] MEDS: MENTHOL/PHENOL 1 EACH UD MM PRN (23:13)
[2018-07-09] MEDS: P-EPHED 60MG/TRIPROLIDI 2.5MG TABLET PO PRN (23:13)
[2018-07-10] MEDS ORDERED: METHADONE HCL 10 MG TABLET ONE (03:55)
[2018-07-10] MEDS ORDERED: METHADONE HCL 40 MG DISPERSABLE TABLET ONE (03:56)
[2018-07-10] MEDS: hydrOXYzine PAMOATE 50 MG CAPSULE (FP) PO PRN ×4 (06:19→23:00)
[2018-07-10] MEDS: METHADONE 80 MG, METHADONE 10 MG PO SCH (06:20)
[2018-07-10] MEDS: PRENATAL VITAMINS W/ FOLIC ACID TABLET (FP) PO SCH (10:03)
[2018-07-10] MEDS: NICOTINE 14 MG/24 HOURS TOPICAL PATCH TD SCH (10:03)
[2018-07-10] MEDS: QUEtiapine FUMARATE 50 MG TABLET PO SCH (21:23)
[2018-07-10] MEDS: THIAMINE HCL 100 MG TABLET (FP) PO SCH (21:23)
[2018-07-10] MEDS: P-EPHED 60MG/TRIPROLIDI 2.5MG TABLET PO PRN (21:25)
[2018-07-10] MEDS: MENTHOL/PHENOL 1 EACH UD MM PRN (23:00)
[2018-07-11] MEDS ORDERED: METHADONE HCL 10 MG TABLET ONE (03:20)
[2018-07-11] MEDS ORDERED: METHADONE HCL 40 MG DISPERSABLE TABLET ONE (03:21)
[2018-07-11] MEDS: METHADONE 80 MG, METHADONE 10 MG PO SCH (06:46)
[2018-07-11] MEDS: hydrOXYzine PAMOATE 50 MG CAPSULE (FP) PO PRN ×3 (06:46→21:22)
[2018-07-11] MEDS: NICOTINE 14 MG/24 HOURS TOPICAL PATCH TD SCH (09:46)
[2018-07-11] MEDS: PRENATAL VITAMINS W/ FOLIC ACID TABLET (FP) PO SCH (09:46)
[2018-07-11] MEDS: QUEtiapine FUMARATE 50 MG TABLET PO SCH (21:19)
[2018-07-11] MEDS: THIAMINE HCL 100 MG TABLET (FP) PO SCH (21:19)
[2018-07-11] MEDS: MENTHOL/PHENOL 1 EACH UD MM PRN (21:22)
[2018-07-11] MEDS: P-EPHED 60MG/TRIPROLIDI 2.5MG TABLET PO PRN (21:23)
[2018-07-12] MEDS ORDERED: METHADONE HCL 40 MG DISPERSABLE TABLET ONE (02:49)
[2018-07-12] MEDS ORDERED: METHADONE HCL 10 MG TABLET ONE (02:49)
[2018-07-12] MEDS: P-EPHED 60MG/TRIPROLIDI 2.5MG TABLET PO PRN (06:42)
[2018-07-12] MEDS: hydrOXYzine PAMOATE 50 MG CAPSULE (FP) PO PRN ×4 (06:42→21:11)
[2018-07-12] MEDS: METHADONE 80 MG, METHADONE 10 MG PO SCH (06:43)
[2018-07-12] MEDS: NICOTINE 14 MG/24 HOURS TOPICAL PATCH TD SCH (09:43)
[2018-07-12] MEDS: PRENATAL VITAMINS W/ FOLIC ACID TABLET (FP) PO SCH (09:43)
[2018-07-12] MEDS: QUEtiapine FUMARATE 50 MG TABLET PO SCH (21:11)
[2018-07-12] MEDS: THIAMINE HCL 100 MG TABLET (FP) PO SCH (21:11)
[2018-07-13] MEDS ORDERED: METHADONE HCL 10 MG TABLET ONE (04:04)
[2018-07-13] MEDS ORDERED: METHADONE HCL 40 MG DISPERSABLE TABLET ONE (04:05)
[2018-07-13] MEDS: METHADONE 80 MG, METHADONE 10 MG PO SCH (06:23)
[2018-07-13] MEDS: hydrOXYzine PAMOATE 50 MG CAPSULE (FP) PO PRN ×4 (06:24→21:19)
[2018-07-13] MEDS: PRENATAL VITAMINS W/ FOLIC ACID TABLET (FP) PO SCH (10:06)
[2018-07-13] MEDS: NICOTINE 14 MG/24 HOURS TOPICAL PATCH TD SCH (10:07)
[2018-07-13] MEDS: QUEtiapine FUMARATE 50 MG TABLET PO SCH (21:17)
[2018-07-13] MEDS: THIAMINE HCL 100 MG TABLET (FP) PO SCH (21:17)
[2018-07-13] MEDS: MENTHOL/PHENOL 1 EACH UD MM PRN (21:18)
[2018-07-13] MEDS: P-EPHED 60MG/TRIPROLIDI 2.5MG TABLET PO PRN (21:18)
[2018-07-14] MEDS ORDERED: METHADONE HCL 10 MG TABLET ONE (03:22)
[2018-07-14] MEDS ORDERED: METHADONE HCL 40 MG DISPERSABLE TABLET ONE (03:22)
[2018-07-14] MEDS: METHADONE 80 MG, METHADONE 10 MG PO SCH (07:19)
[2018-07-14] MEDS: hydrOXYzine PAMOATE 50 MG CAPSULE (FP) PO PRN ×2 (07:19→21:15)
[2018-07-14] MEDS: NICOTINE 14 MG/24 HOURS TOPICAL PATCH TD SCH (10:08)
[2018-07-14] MEDS: PRENATAL VITAMINS W/ FOLIC ACID TABLET (FP) PO SCH (10:08)
[2018-07-14] MEDS: THIAMINE HCL 100 MG TABLET (FP) PO SCH (21:15)
[2018-07-14] MEDS: QUEtiapine FUMARATE 50 MG TABLET PO SCH (21:16)
[2018-07-14] MEDS: MENTHOL/PHENOL 1 EACH UD MM PRN (21:17)
[2018-07-14] MEDS: P-EPHED 60MG/TRIPROLIDI 2.5MG TABLET PO PRN (21:17)
[2018-07-15] MEDS ORDERED: METHADONE HCL 10 MG TABLET ONE (03:20)
[2018-07-15] MEDS ORDERED: METHADONE HCL 40 MG DISPERSABLE TABLET ONE (03:20)
[2018-07-15] MEDS: METHADONE 80 MG, METHADONE 10 MG PO SCH (06:21)
[2018-07-15] MEDS: hydrOXYzine PAMOATE 50 MG CAPSULE (FP) PO PRN ×4 (06:22→21:25)
[2018-07-15] MEDS: PRENATAL VITAMINS W/ FOLIC ACID TABLET (FP) PO SCH (10:03)
[2018-07-15] MEDS: NICOTINE 14 MG/24 HOURS TOPICAL PATCH TD SCH (10:03)
[2018-07-15] MEDS ORDERED: QUEtiapine FUMARATE 25 MG TABLET (FP) ONE (19:26)
[2018-07-15] MEDS: THIAMINE HCL 100 MG TABLET (FP) PO SCH (21:25)
[2018-07-15] MEDS: guaiFENesin/D-METHORPHAN HB 10 ML UNIT-DOSE CUPS PO PRN (21:26)
[2018-07-15] MEDS: QUEtiapine FUMARATE 50 MG TABLET PO SCH (21:26)
[2018-07-16] MEDS ORDERED: METHADONE HCL 10 MG TABLET ONE (03:58)
[2018-07-16] MEDS ORDERED: METHADONE HCL 40 MG DISPERSABLE TABLET ONE (03:59)
[2018-07-16] MEDS: hydrOXYzine PAMOATE 50 MG CAPSULE (FP) PO PRN ×2 (06:53→21:14)
[2018-07-16] MEDS: METHADONE 80 MG, METHADONE 10 MG PO SCH (06:54)
[2018-07-16] MEDS: PRENATAL VITAMINS W/ FOLIC ACID TABLET (FP) PO SCH (10:16)
[2018-07-16] MEDS: NICOTINE 14 MG/24 HOURS TOPICAL PATCH TD SCH (10:16)
[2018-07-16] MEDS: THIAMINE HCL 100 MG TABLET (FP) PO SCH (21:13)
[2018-07-16] MEDS: guaiFENesin/D-METHORPHAN HB 10 ML UNIT-DOSE CUPS PO PRN (21:14)
[2018-07-16] MEDS: MENTHOL/PHENOL 1 EACH UD MM PRN (21:15)
[2018-07-16] MEDS: QUEtiapine FUMARATE 50 MG TABLET PO SCH (21:30)
[2018-07-17] MEDS ORDERED: METHADONE HCL 10 MG TABLET ONE (03:04)
[2018-07-17] MEDS ORDERED: METHADONE HCL 40 MG DISPERSABLE TABLET ONE (03:04)
[2018-07-17] MEDS: METHADONE 80 MG, METHADONE 10 MG PO SCH (06:42)
[2018-07-17] MEDS: hydrOXYzine PAMOATE 50 MG CAPSULE (FP) PO PRN ×2 (09:57→21:26)
[2018-07-17] MEDS: NICOTINE 14 MG/24 HOURS TOPICAL PATCH TD SCH (09:57)
[2018-07-17] MEDS: PRENATAL VITAMINS W/ FOLIC ACID TABLET (FP) PO SCH (09:57)
[2018-07-17] MEDS: guaiFENesin/D-METHORPHAN HB 10 ML UNIT-DOSE CUPS PO PRN ×2 (14:11→22:49)
[2018-07-17] MEDS: MENTHOL/PHENOL 1 EACH UD MM PRN (14:12)
[2018-07-17] MEDS: THIAMINE HCL 100 MG TABLET (FP) PO SCH (21:25)
[2018-07-17] MEDS: QUEtiapine FUMARATE 50 MG TABLET PO SCH (21:27)
[2018-07-18] MEDS ORDERED: METHADONE HCL 10 MG TABLET ONE (02:42)
[2018-07-18] MEDS ORDERED: METHADONE HCL 40 MG DISPERSABLE TABLET ONE (02:43)
[2018-07-18] MEDS: METHADONE 80 MG, METHADONE 10 MG PO SCH (06:36)
[2018-07-18] MEDS: guaiFENesin/D-METHORPHAN HB 10 ML UNIT-DOSE CUPS PO PRN ×2 (06:37→21:21)
[2018-07-18] MEDS: MENTHOL/PHENOL 1 EACH UD MM PRN ×2 (06:37→21:22)
[2018-07-18] MEDS: PRENATAL VITAMINS W/ FOLIC ACID TABLET (FP) PO SCH (09:44)
[2018-07-18] MEDS: NICOTINE 14 MG/24 HOURS TOPICAL PATCH TD SCH (09:44)
[2018-07-18] MEDS: hydrOXYzine PAMOATE 50 MG CAPSULE (FP) PO PRN ×2 (09:45→21:21)
[2018-07-18] MEDS: THIAMINE HCL 100 MG TABLET (FP) PO SCH (21:20)
[2018-07-18] MEDS: QUEtiapine FUMARATE 50 MG TABLET PO SCH (21:20)
[2018-07-19] MEDS ORDERED: METHADONE HCL 40 MG DISPERSABLE TABLET ONE (03:06)
[2018-07-19] MEDS ORDERED: METHADONE HCL 10 MG TABLET ONE (03:06)
[2018-07-19] MEDS: METHADONE 80 MG, METHADONE 10 MG PO SCH (06:35)
[2018-07-19] MEDS: hydrOXYzine PAMOATE 50 MG CAPSULE (FP) PO PRN ×2 (06:35→21:20)
[2018-07-19] MEDS: PRENATAL VITAMINS W/ FOLIC ACID TABLET (FP) PO SCH (10:10)
[2018-07-19] MEDS: NICOTINE 14 MG/24 HOURS TOPICAL PATCH TD SCH (10:10)
[2018-07-19] MEDS: QUEtiapine FUMARATE 50 MG TABLET PO SCH (21:20)
[2018-07-19] MEDS: MENTHOL/PHENOL 1 EACH UD MM PRN (21:21)
[2018-07-19] MEDS: guaiFENesin/D-METHORPHAN HB 10 ML UNIT-DOSE CUPS PO PRN (21:21)
[2018-07-19] MEDS: THIAMINE HCL 100 MG TABLET (FP) PO SCH (21:29)
[2018-07-20] MEDS ORDERED: METHADONE HCL 10 MG TABLET ONE (03:17)
[2018-07-20] MEDS ORDERED: METHADONE HCL 40 MG DISPERSABLE TABLET ONE (03:18)
[2018-07-20] MEDS ORDERED: METHADONE HCL 10 MG TABLET PO SCH (06:00)
[2018-07-20] MEDS: METHADONE 80 MG, METHADONE 10 MG PO SCH (06:32)
[2018-07-20] MEDS: NICOTINE 14 MG/24 HOURS TOPICAL PATCH TD SCH (10:08)
[2018-07-20] MEDS: PRENATAL VITAMINS W/ FOLIC ACID TABLET (FP) PO SCH (10:09)
[2018-07-20] MEDS: hydrOXYzine PAMOATE 50 MG CAPSULE (FP) PO PRN ×2 (10:09→21:15)
[2018-07-20] MEDS: THIAMINE HCL 100 MG TABLET (FP) PO SCH (21:15)
[2018-07-20] MEDS: QUEtiapine FUMARATE 50 MG TABLET PO SCH (21:15)
[2018-07-20] MEDS: guaiFENesin/D-METHORPHAN HB 10 ML UNIT-DOSE CUPS PO PRN (21:16)
[2018-07-20] MEDS: MENTHOL/PHENOL 1 EACH UD MM PRN (21:16)
[2018-07-21] MEDS ORDERED: METHADONE HCL 10 MG TABLET ONE (05:07)
[2018-07-21] MEDS ORDERED: METHADONE HCL 40 MG DISPERSABLE TABLET ONE (05:08)
[2018-07-21] MEDS: METHADONE 80 MG, METHADONE 10 MG PO SCH (06:39)
[2018-07-21] MEDS: NICOTINE 14 MG/24 HOURS TOPICAL PATCH TD SCH (10:27)
[2018-07-21] MEDS: PRENATAL VITAMINS W/ FOLIC ACID TABLET (FP) PO SCH (10:27)
[2018-07-21] MEDS: hydrOXYzine PAMOATE 50 MG CAPSULE (FP) PO PRN ×2 (10:27→21:56)
[2018-07-21] MEDS ORDERED: ERYTHROMYCIN 0.5% OPHTHALMIC OINTMENT 3.5 GM TUBE OU SCH ×2 (12:00→22:00)
[2018-07-21] MEDS ORDERED: BACITRACIN 15 GM TUBE TOPICAL OINTMENT TP SCH (12:00)
--- NOTE | 2018-07-21 12:18 | PN ---
[facility] Progress Note Note: C/O BILATERAL EYE REDNESS AND DISCHARGE ON AWAKENING IN THE MORNING X 2 DAYS. PT ALSO C/O HX OF BIG BUMP THAT SOMETIMES BLEEDS AND WANTS ANTIBIOTICS . REPORTS HE HAS PREVIOUS HX OF SAME AND HAD TWO ON BACK OF HIS THIGHS. UNABLE TO STATE IF IT IS A HX OF BLEEDING HEMORRHOIDS OR WARTS.UNABLE TO ASSESS AND EVALUATE BUMP PT DECLINED EXAMINATION. Vital Signs 07/21/18 06:43 Temperature 97.9 F Pulse Rate 66 Respiratory 16 Rate Blood Pressure 121/71 EYES:SLIGHT REDNESS TO CONJUCTIVA, BILATERAL. NO DISCHARGE NOTED AT TIME O EYE EXAM. IMPRESSION:R/O CONJUCTIVITIS PLAN:ERYTHROMYCIN EYE DROP DIRECTED. BACITRACIN OINTMENT TO AFFECTED AREA DIRECTED.
[2018-07-21] MEDS: BACITRACIN 0.9 GM PACKET TP SCH (14:42)
[2018-07-21] MEDS: OFLOXACIN 0.3% OPHTHALMIC SOLUTION 5 ML BOTTLE OU SCH ×2 (14:42→21:56)
[2018-07-21] MEDS: QUEtiapine FUMARATE 50 MG TABLET PO SCH (21:55)
[2018-07-21] MEDS: THIAMINE HCL 100 MG TABLET (FP) PO SCH (21:55)
[2018-07-21] MEDS: guaiFENesin/D-METHORPHAN HB 10 ML UNIT-DOSE CUPS PO PRN (21:56)
[2018-07-21] MEDS: MENTHOL/PHENOL 1 EACH UD MM PRN (21:56)
[2018-07-22] MEDS ORDERED: METHADONE HCL 10 MG TABLET ONE (03:31)
[2018-07-22] MEDS ORDERED: METHADONE HCL 40 MG DISPERSABLE TABLET ONE (03:31)
[2018-07-22] MEDS: METHADONE 80 MG, METHADONE 10 MG PO SCH (06:54)
[2018-07-22] MEDS: OFLOXACIN 0.3% OPHTHALMIC SOLUTION 5 ML BOTTLE OU SCH ×3 (06:56→21:17)
[2018-07-22] MEDS: PRENATAL VITAMINS W/ FOLIC ACID TABLET (FP) PO SCH (09:58)
[2018-07-22] MEDS: BACITRACIN 0.9 GM PACKET TP SCH (09:58)
[2018-07-22] MEDS: NICOTINE 14 MG/24 HOURS TOPICAL PATCH TD SCH (09:58)
[2018-07-22] MEDS: hydrOXYzine PAMOATE 50 MG CAPSULE (FP) PO PRN ×2 (09:59→21:16)
[2018-07-22] MEDS: THIAMINE HCL 100 MG TABLET (FP) PO SCH (21:16)
[2018-07-22] MEDS: QUEtiapine FUMARATE 50 MG TABLET PO SCH (21:16)
[2018-07-22] MEDS: guaiFENesin/D-METHORPHAN HB 10 ML UNIT-DOSE CUPS PO PRN (21:16)
[2018-07-22] MEDS: MENTHOL/PHENOL 1 EACH UD MM PRN (21:16)
[2018-07-23] MEDS ORDERED: METHADONE HCL 10 MG TABLET ONE (05:45)
[2018-07-23] MEDS ORDERED: METHADONE HCL 40 MG DISPERSABLE TABLET ONE (05:45)
[2018-07-23] MEDS: METHADONE 80 MG, METHADONE 10 MG PO SCH (06:44)
[2018-07-23] MEDS: PRENATAL VITAMINS W/ FOLIC ACID TABLET (FP) PO SCH (10:09)
[2018-07-23] MEDS: NICOTINE 14 MG/24 HOURS TOPICAL PATCH TD SCH (10:09)
[2018-07-23] MEDS: BACITRACIN 0.9 GM PACKET TP SCH (10:09)
[2018-07-23] MEDS: hydrOXYzine PAMOATE 50 MG CAPSULE (FP) PO PRN ×2 (10:10→21:18)
[2018-07-23] MEDS: OFLOXACIN 0.3% OPHTHALMIC SOLUTION 5 ML BOTTLE OU SCH ×3 (10:12→21:18)
[2018-07-23] MEDS: MENTHOL/PHENOL 1 EACH UD MM PRN (21:18)
[2018-07-23] MEDS: QUEtiapine FUMARATE 50 MG TABLET PO SCH (21:18)
[2018-07-23] MEDS: THIAMINE HCL 100 MG TABLET (FP) PO SCH (21:18)
[2018-07-23] MEDS: guaiFENesin/D-METHORPHAN HB 10 ML UNIT-DOSE CUPS PO PRN (21:18)
[2018-07-24] MEDS ORDERED: METHADONE HCL 10 MG TABLET ONE (03:56)
[2018-07-24] MEDS ORDERED: METHADONE HCL 40 MG DISPERSABLE TABLET ONE (03:57)
[2018-07-24] MEDS: METHADONE 80 MG, METHADONE 10 MG PO SCH (06:59)
[2018-07-24] MEDS: PRENATAL VITAMINS W/ FOLIC ACID TABLET (FP) PO SCH (09:36)
[2018-07-24] MEDS: OFLOXACIN 0.3% OPHTHALMIC SOLUTION 5 ML BOTTLE OU SCH ×3 (09:37→21:10)
[2018-07-24] MEDS: hydrOXYzine PAMOATE 50 MG CAPSULE (FP) PO PRN ×2 (09:37→21:09)
[2018-07-24] MEDS: BACITRACIN 0.9 GM PACKET TP SCH (09:37)
[2018-07-24] MEDS: NICOTINE 14 MG/24 HOURS TOPICAL PATCH TD SCH (09:38)
[2018-07-24] MEDS: QUEtiapine FUMARATE 50 MG TABLET PO SCH (21:08)
[2018-07-24] MEDS: THIAMINE HCL 100 MG TABLET (FP) PO SCH (21:08)
[2018-07-24] MEDS: MENTHOL/PHENOL 1 EACH UD MM PRN (21:09)
[2018-07-24] MEDS: guaiFENesin/D-METHORPHAN HB 10 ML UNIT-DOSE CUPS PO PRN (21:10)
[2018-07-25] MEDS ORDERED: METHADONE HCL 40 MG DISPERSABLE TABLET ONE (03:29)
[2018-07-25] MEDS ORDERED: METHADONE HCL 10 MG TABLET ONE (03:29)
[2018-07-25] MEDS: METHADONE 80 MG, METHADONE 10 MG PO SCH (06:47)
[2018-07-25] MEDS: PRENATAL VITAMINS W/ FOLIC ACID TABLET (FP) PO SCH (09:48)
[2018-07-25] MEDS: NICOTINE 14 MG/24 HOURS TOPICAL PATCH TD SCH (09:50)
[2018-07-25] MEDS: guaiFENesin/D-METHORPHAN HB 10 ML UNIT-DOSE CUPS PO PRN ×2 (09:51→21:08)
[2018-07-25] MEDS: OFLOXACIN 0.3% OPHTHALMIC SOLUTION 5 ML BOTTLE OU SCH ×3 (09:51→21:08)
[2018-07-25] MEDS: hydrOXYzine PAMOATE 50 MG CAPSULE (FP) PO PRN ×2 (09:51→21:09)
[2018-07-25] MEDS: BACITRACIN 0.9 GM PACKET TP SCH (09:52)
[2018-07-25] MEDS: QUEtiapine FUMARATE 50 MG TABLET PO SCH (21:08)
[2018-07-25] MEDS: THIAMINE HCL 100 MG TABLET (FP) PO SCH (21:08)
[2018-07-25] MEDS: MENTHOL/PHENOL 1 EACH UD MM PRN (21:08)
[2018-07-26] MEDS ORDERED: METHADONE HCL 40 MG DISPERSABLE TABLET ONE (05:44)
[2018-07-26] MEDS ORDERED: METHADONE HCL 10 MG TABLET ONE (05:44)
[2018-07-26] MEDS: hydrOXYzine PAMOATE 50 MG CAPSULE (FP) PO PRN ×3 (06:15→21:12)
[2018-07-26] MEDS: METHADONE 80 MG, METHADONE 10 MG PO SCH (06:15)
--- NOTE | 2018-07-26 07:13 | PN ---
Psychiatric Progress Note Vital Signs: Vital Signs Period Temp Pulse Resp BP Sys/Maria Pulse Ox Last 24 Hr 98.0 F 64 18-18 116/66 Date of Session: 07/26/18 Chief Complaint:: Discharge Note HPI: Patient addressing Alcohol Dependence comorbid with Nicotine Dependence, Alcohol-Induced Mood Disorder and Alcohol-Induced Sleep Disorder Current Medications: Active Medications Generic Name Dose Route Start Last Admin Trade Name Freq PRN Reason Stop Dose Admin Acetaminophen 650 mg 07/06/18 11:39 Tylenol - PO Q4H PRN FEVER Al Hydroxide/Mg Hydroxide 30 ml 07/06/18 11:39 Mylanta Oral Suspension - PO Q6H PRN DYSPEPSIA Bacitracin 0.9 gm 07/21/18 12:00 07/25/18 09:52 Bacitracin - TP Not Given DAILY TRACI Eucalyptus/Menthol/Phenol/Sorbitol 1 each 07/06/18 11:39 07/25/18 21:08 Cepastat Lozenge - MM 1 each Q4H PRN Administration SORE THROAT Guaifenesin 10 ml 07/06/18 11:39 07/25/18 21:08 Robitussin Dm - PO 10 ml Q6H PRN Administration COUGH Hydroxyzine Pamoate 50 mg 07/06/18 11:39 07/26/18 06:15 Vistaril - PO 50 mg Q4H PRN Administration AGITATION Ibuprofen 400 mg 07/06/18 11:39 Motrin - PO Q6H PRN Pain Level 4-6 Loperamide HCl 4 mg 07/06/18 11:39 Imodium - PO Q6H PRN DIARRHEA Magnesium Citrate 300 ml 07/06/18 11:39 Citroma - PO Q48H PRN CONSTIPATION Magnesium Hydroxide 30 ml 07/06/18 11:39 Milk Of Magnesia - PO DAILY PRN CONSTIPATION Melatonin 5 mg 07/06/18 22:00 Melatonin PO HS PRN INSOMNIA Methadone HCl 80 mg/ Methadone 90 mg 07/26/18 06:00 07/26/18 06:15 HCl 10 mg PO 08/02/18 05:59 90 mg DAILY@0600 TRACI Administration Nicotine 14 mg 07/06/18 11:45 07/25/18 09:50 Nicoderm Patch - TD 14 mg DAILY TRACI Administration Ofloxacin 1 drop 07/22/18 14:00 12/23/18 21:08 Ocuflox 0.3% Eye Drops - OU 1 drop TID@1000,1400,2200 TRACI Administration Multivit/Folic Acid/Iron 1 tab 07/07/18 10:00 07/25/18 09:48 Vitamins (Sjr) - PO 1 tab DAILY TRACI Administration Pseudoephedrine/Triprolidine 1 combo 07/06/18 11:39 07/14/18 21:17 Actifed - PO 1 combo TID PRN Administration NASAL CONGESTION Quetiapine Fumarate 50 mg 07/06/18 22:00 07/25/18 21:08 Seroquel - PO 50 mg HS TRACI Administration Thiamine HCl 100 mg 07/06/18 22:00 07/25/18 21:08 Vitamin B1 - PO 100 mg HS TRACI Administration Current Side Effect: No Lab tests ordered: Yes Lab tests reviewed: Yes Provider note:: Patient has completed this program today. He has met his treatment goals and will continue to address his issues in outpatient treatment at [facility]. Told proposal lead writer that from his participation in this program, he has learned. He responded well to Seroquel 50 mg po HS. Script for 30 days supply of medication is electronically transmitted to [facility] at [address] [place] [address]. He is stable for discharge today Total face to face time:: 35 Mental Status Exam - Mental Status Exam Alert and Oriented to: Time, Place, Person Cognitive Function: Fair Patient Appearance: Well Groomed Mood: Hopeful, Euthymic Affect: Appropriate Patient Behavior: Cooperative Speech Pattern: Clear Voice Loudness: Normal Thought Process: Intact, Goal Oriented Thought Disorder: Not Present Hallucinations: Denies Suicidal Ideation: Denies Homicidal Ideation: Denies Sleep: Fair Appetite: Fair Muscle strength/Tone: Normal Gait/Station: Normal Psychiatric Treatment Plan - Problem List (1) Alcohol dependence Current Visit: Yes (2) Alcohol-induced mood disorder Current Visit: Yes (3) Alcohol induced sleep disorders Current Visit: Yes (4) Nicotine dependence Current Visit: No Qualifiers: (5) Opioid dependence on agonist therapy Current Visit: Yes Initial treatment plan: Patient is discharged today and referred to [facility] for outpatient treatment
[2018-07-26] MEDS: BACITRACIN 0.9 GM PACKET TP SCH (10:11)
[2018-07-26] MEDS: PRENATAL VITAMINS W/ FOLIC ACID TABLET (FP) PO SCH (10:11)
[2018-07-26] MEDS: NICOTINE 14 MG/24 HOURS TOPICAL PATCH TD SCH (10:12)
[2018-07-26] MEDS: OFLOXACIN 0.3% OPHTHALMIC SOLUTION 5 ML BOTTLE OU SCH ×3 (10:12→21:13)
[2018-07-26] MEDS: QUEtiapine FUMARATE 50 MG TABLET PO SCH (21:11)
[2018-07-26] MEDS: THIAMINE HCL 100 MG TABLET (FP) PO SCH (21:11)
[2018-07-26] MEDS: guaiFENesin/D-METHORPHAN HB 10 ML UNIT-DOSE CUPS PO PRN (21:12)
[2018-07-26] MEDS: MENTHOL/PHENOL 1 EACH UD MM PRN (21:13)
[2018-07-27] MEDS ORDERED: METHADONE HCL 10 MG TABLET ONE (05:43)
[2018-07-27] MEDS ORDERED: METHADONE HCL 40 MG DISPERSABLE TABLET ONE (05:43)
[2018-07-27] MEDS: hydrOXYzine PAMOATE 50 MG CAPSULE (FP) PO PRN ×3 (06:22→21:11)
[2018-07-27] MEDS: METHADONE 80 MG, METHADONE 10 MG PO SCH (06:23)
[2018-07-27] MEDS: BACITRACIN 0.9 GM PACKET TP SCH (09:57)
[2018-07-27] MEDS: PRENATAL VITAMINS W/ FOLIC ACID TABLET (FP) PO SCH (09:57)
[2018-07-27] MEDS: OFLOXACIN 0.3% OPHTHALMIC SOLUTION 5 ML BOTTLE OU SCH ×3 (09:58→21:11)
[2018-07-27] MEDS: NICOTINE 14 MG/24 HOURS TOPICAL PATCH TD SCH (09:59)
[2018-07-27] MEDS: THIAMINE HCL 100 MG TABLET (FP) PO SCH (21:10)
[2018-07-27] MEDS: QUEtiapine FUMARATE 50 MG TABLET PO SCH (21:10)
[2018-07-27] MEDS: guaiFENesin/D-METHORPHAN HB 10 ML UNIT-DOSE CUPS PO PRN (21:11)
[2018-07-27] MEDS: MENTHOL/PHENOL 1 EACH UD MM PRN (21:12)
[2018-07-28] MEDS ORDERED: METHADONE HCL 10 MG TABLET ONE (02:51)
[2018-07-28] MEDS ORDERED: METHADONE HCL 40 MG DISPERSABLE TABLET ONE (02:51)
[2018-07-28] MEDS: METHADONE 80 MG, METHADONE 10 MG PO SCH (06:24)
[2018-07-28] MEDS: guaiFENesin/D-METHORPHAN HB 10 ML UNIT-DOSE CUPS PO PRN (06:26)
[2018-07-28] MEDS: PRENATAL VITAMINS W/ FOLIC ACID TABLET (FP) PO SCH (10:20)
[2018-07-28] MEDS: NICOTINE 14 MG/24 HOURS TOPICAL PATCH TD SCH (10:20)
[2018-07-28] MEDS: hydrOXYzine PAMOATE 50 MG CAPSULE (FP) PO PRN ×2 (10:20→21:18)
[2018-07-28] MEDS: BACITRACIN 0.9 GM PACKET TP SCH (10:21)
[2018-07-28] MEDS: OFLOXACIN 0.3% OPHTHALMIC SOLUTION 5 ML BOTTLE OU SCH ×3 (10:23→21:18)
[2018-07-28] MEDS: THIAMINE HCL 100 MG TABLET (FP) PO SCH (21:18)
[2018-07-28] MEDS: QUEtiapine FUMARATE 50 MG TABLET PO SCH (21:18)
[2018-07-29] MEDS ORDERED: METHADONE HCL 10 MG TABLET ONE (02:57)
[2018-07-29] MEDS ORDERED: METHADONE HCL 40 MG DISPERSABLE TABLET ONE (02:57)
[2018-07-29] MEDS: METHADONE 80 MG, METHADONE 10 MG PO SCH (06:19)
[2018-07-29] MEDS: BACITRACIN 0.9 GM PACKET TP SCH (10:09)
[2018-07-29] MEDS: NICOTINE 14 MG/24 HOURS TOPICAL PATCH TD SCH (10:09)
[2018-07-29] MEDS: hydrOXYzine PAMOATE 50 MG CAPSULE (FP) PO PRN ×2 (10:09→21:13)
[2018-07-29] MEDS: PRENATAL VITAMINS W/ FOLIC ACID TABLET (FP) PO SCH (10:09)
[2018-07-29] MEDS: OFLOXACIN 0.3% OPHTHALMIC SOLUTION 5 ML BOTTLE OU SCH ×3 (10:10→21:13)
[2018-07-29] MEDS: THIAMINE HCL 100 MG TABLET (FP) PO SCH (21:13)
[2018-07-29] MEDS: QUEtiapine FUMARATE 50 MG TABLET PO SCH (21:13)
[2018-07-30] MEDS ORDERED: METHADONE HCL 10 MG TABLET ONE (02:26)
[2018-07-30] MEDS ORDERED: METHADONE HCL 40 MG DISPERSABLE TABLET ONE (02:26)
[2018-07-30] MEDS: METHADONE 80 MG, METHADONE 10 MG PO SCH (06:44)
[2018-07-30] MEDS: PRENATAL VITAMINS W/ FOLIC ACID TABLET (FP) PO SCH (09:47)
[2018-07-30] MEDS: OFLOXACIN 0.3% OPHTHALMIC SOLUTION 5 ML BOTTLE OU SCH ×3 (09:47→21:13)
[2018-07-30] MEDS: hydrOXYzine PAMOATE 50 MG CAPSULE (FP) PO PRN ×2 (09:48→21:13)
[2018-07-30] MEDS: NICOTINE 14 MG/24 HOURS TOPICAL PATCH TD SCH (09:48)
[2018-07-30] MEDS: BACITRACIN 0.9 GM PACKET TP SCH (09:48)
[2018-07-30] MEDS: THIAMINE HCL 100 MG TABLET (FP) PO SCH (21:13)
[2018-07-30] MEDS: QUEtiapine FUMARATE 50 MG TABLET PO SCH (21:13)
[2018-07-31] MEDS ORDERED: METHADONE HCL 40 MG DISPERSABLE TABLET ONE (04:25)
[2018-07-31] MEDS ORDERED: METHADONE HCL 10 MG TABLET ONE (04:25)
[2018-07-31] MEDS: METHADONE 80 MG, METHADONE 10 MG PO SCH (06:21)
[2018-07-31] MEDS: hydrOXYzine PAMOATE 50 MG CAPSULE (FP) PO PRN ×3 (06:22→21:13)
[2018-07-31] MEDS: PRENATAL VITAMINS W/ FOLIC ACID TABLET (FP) PO SCH (09:33)
[2018-07-31] MEDS: OFLOXACIN 0.3% OPHTHALMIC SOLUTION 5 ML BOTTLE OU SCH ×3 (09:34→21:13)
[2018-07-31] MEDS: NICOTINE 14 MG/24 HOURS TOPICAL PATCH TD SCH (09:35)
[2018-07-31] MEDS: BACITRACIN 0.9 GM PACKET TP SCH (09:35)
[2018-07-31] MEDS: QUEtiapine FUMARATE 50 MG TABLET PO SCH (21:13)
[2018-07-31] MEDS: guaiFENesin/D-METHORPHAN HB 10 ML UNIT-DOSE CUPS PO PRN (21:13)
[2018-07-31] MEDS: THIAMINE HCL 100 MG TABLET (FP) PO SCH (21:13)
[2018-08-01] MEDS ORDERED: METHADONE HCL 10 MG TABLET ONE (02:52)
[2018-08-01] MEDS ORDERED: METHADONE HCL 40 MG DISPERSABLE TABLET ONE (02:53)
[2018-08-01] MEDS: METHADONE 80 MG, METHADONE 10 MG PO SCH (06:37)
[2018-08-01] MEDS: hydrOXYzine PAMOATE 50 MG CAPSULE (FP) PO PRN ×2 (09:41→21:10)
[2018-08-01] MEDS: OFLOXACIN 0.3% OPHTHALMIC SOLUTION 5 ML BOTTLE OU SCH ×3 (09:41→21:10)
[2018-08-01] MEDS: PRENATAL VITAMINS W/ FOLIC ACID TABLET (FP) PO SCH (09:41)
[2018-08-01] MEDS: BACITRACIN 0.9 GM PACKET TP SCH (09:42)
[2018-08-01] MEDS: NICOTINE 14 MG/24 HOURS TOPICAL PATCH TD SCH (09:42)
[2018-08-01] MEDS: THIAMINE HCL 100 MG TABLET (FP) PO SCH (21:10)
[2018-08-01] MEDS: QUEtiapine FUMARATE 50 MG TABLET PO SCH (21:10)
[2018-08-02] MEDS ORDERED: METHADONE HCL 40 MG DISPERSABLE TABLET ONE ×2 (03:56→07:28)
[2018-08-02] MEDS ORDERED: METHADONE HCL 10 MG TABLET ONE ×2 (03:56→07:28)
[2018-08-02] MEDS ORDERED: METHADONE HCL 10 MG TABLET PO SCH (07:15)
[2018-08-02] MEDS: hydrOXYzine PAMOATE 50 MG CAPSULE (FP) PO PRN ×2 (07:28→21:55)
[2018-08-02] MEDS: METHADONE 80 MG, METHADONE 10 MG PO SCH (07:29)
[2018-08-02] MEDS: PRENATAL VITAMINS W/ FOLIC ACID TABLET (FP) PO SCH (09:49)
[2018-08-02] MEDS: BACITRACIN 0.9 GM PACKET TP SCH (09:49)
[2018-08-02] MEDS: NICOTINE 14 MG/24 HOURS TOPICAL PATCH TD SCH (09:49)
[2018-08-02] MEDS: OFLOXACIN 0.3% OPHTHALMIC SOLUTION 5 ML BOTTLE OU SCH ×3 (09:49→21:55)
[2018-08-02] MEDS: QUEtiapine FUMARATE 50 MG TABLET PO SCH (21:55)
[2018-08-02] MEDS: THIAMINE HCL 100 MG TABLET (FP) PO SCH (21:55)
[2018-08-02] MEDS: guaiFENesin/D-METHORPHAN HB 10 ML UNIT-DOSE CUPS PO PRN (21:55)
[2018-08-03] MEDS ORDERED: METHADONE HCL 10 MG TABLET ONE (03:19)
[2018-08-03] MEDS ORDERED: METHADONE HCL 40 MG DISPERSABLE TABLET ONE (03:19)
[2018-08-03] MEDS: METHADONE 80 MG, METHADONE 10 MG PO SCH (06:52)
[2018-08-03] MEDS: hydrOXYzine PAMOATE 50 MG CAPSULE (FP) PO PRN ×2 (06:54→21:13)
[2018-08-03] MEDS: PRENATAL VITAMINS W/ FOLIC ACID TABLET (FP) PO SCH (09:36)
[2018-08-03] MEDS: OFLOXACIN 0.3% OPHTHALMIC SOLUTION 5 ML BOTTLE OU SCH ×3 (09:36→21:14)
[2018-08-03] MEDS: BACITRACIN 0.9 GM PACKET TP SCH (09:36)
[2018-08-03] MEDS: NICOTINE 14 MG/24 HOURS TOPICAL PATCH TD SCH (09:36)
[2018-08-03] MEDS: THIAMINE HCL 100 MG TABLET (FP) PO SCH (21:13)
[2018-08-03] MEDS: QUEtiapine FUMARATE 50 MG TABLET PO SCH (21:13)
[2018-08-04] MEDS ORDERED: METHADONE HCL 10 MG TABLET ONE (03:32)
[2018-08-04] MEDS ORDERED: METHADONE HCL 40 MG DISPERSABLE TABLET ONE (03:32)
[2018-08-04] MEDS: METHADONE 80 MG, METHADONE 10 MG PO SCH (06:20)
[2018-08-04] MEDS: hydrOXYzine PAMOATE 50 MG CAPSULE (FP) PO PRN ×2 (06:22→09:47)
[2018-08-04 07:00] VITALS: BP 142/96; PULSE 59; TEMP 98.6
--- NOTE | 2018-08-04 09:31 | PN ---
Psychiatric Progress Note Vital Signs: Vital Signs Period Temp Pulse Resp BP Sys/Maria Pulse Ox Last 24 Hr 98.6 F 59 17-18 142/96 Date of Session: 08/04/18 Chief Complaint:: Discharge Note HPI: Patient addressing Alcohol Dependence comorbid with Nicotine Dependence, Alcohol-Induced Mood Disorder and Alcohol-Induced Sleep Disorder Current Medications: Active Medications Generic Name Dose Route Start Last Admin Trade Name Freq PRN Reason Stop Dose Admin Acetaminophen 650 mg 07/06/18 11:39 Tylenol - PO Q4H PRN FEVER Al Hydroxide/Mg Hydroxide 30 ml 07/06/18 11:39 Mylanta Oral Suspension - PO Q6H PRN DYSPEPSIA Bacitracin 0.9 gm 07/21/18 12:00 08/03/18 09:36 Bacitracin - TP Not Given DAILY TRACI Eucalyptus/Menthol/Phenol/Sorbitol 1 each 07/06/18 11:39 07/27/18 21:12 Cepastat Lozenge - MM 1 each Q4H PRN Administration SORE THROAT Guaifenesin 10 ml 07/06/18 11:39 08/02/18 21:55 Robitussin Dm - PO 10 ml Q6H PRN Administration COUGH Hydroxyzine Pamoate 50 mg 07/06/18 11:39 08/04/18 06:22 Vistaril - PO 50 mg Q4H PRN Administration AGITATION Ibuprofen 400 mg 07/06/18 11:39 Motrin - PO Q6H PRN Pain Level 4-6 Loperamide HCl 4 mg 07/06/18 11:39 Imodium - PO Q6H PRN DIARRHEA Magnesium Citrate 300 ml 07/06/18 11:39 Citroma - PO Q48H PRN CONSTIPATION Magnesium Hydroxide 30 ml 07/06/18 11:39 Milk Of Magnesia - PO DAILY PRN CONSTIPATION Melatonin 5 mg 07/06/18 22:00 Melatonin PO HS PRN INSOMNIA Methadone HCl 80 mg/ Methadone 90 mg 08/02/18 07:30 08/04/18 06:20 HCl 10 mg PO 90 mg DAILY@0600 TRACI Administration Nicotine 14 mg 07/06/18 11:45 08/03/18 09:36 Nicoderm Patch - TD 14 mg DAILY TRACI Administration Ofloxacin 1 drop 07/22/18 14:00 08/03/18 21:14 Ocuflox 0.3% Eye Drops - OU Not Given TID@1000,1400,2200 TRACI Multivit/Folic Acid/Iron 1 tab 07/07/18 10:00 08/03/18 09:36 Vitamins (Sjr) - PO 1 tab DAILY TRACI Administration Pseudoephedrine/Triprolidine 1 combo 07/06/18 11:39 07/14/18 21:17 Actifed - PO 1 combo TID PRN Administration NASAL CONGESTION Quetiapine Fumarate 50 mg 07/06/18 22:00 08/03/18 21:13 Seroquel - PO 50 mg HS TRACI Administration Thiamine HCl 100 mg 07/06/18 22:00 08/03/18 21:13 Vitamin B1 - PO 100 mg HS TRACI Administration Provider note:: Patient has completed this program today. He has met his treatment goals and will continue to address his issues in outpatient treatment at [facility]. Told racebook writer that from his participation in this program, he has gained motivation and has learned new ways to maintain abstinence. He responded well to Seroquel 50 mg po HS. Script for 30 days supply of medication is electronically transmitted to [facility] at [address] [place] [address]. He is stable for discharge today Mental Status Exam - Mental Status Exam Alert and Oriented to: Time, Place, Person Cognitive Function: Fair Patient Appearance: Well Groomed Mood: Hopeful, Euthymic Affect: Appropriate Patient Behavior: Cooperative Speech Pattern: Clear Voice Loudness: Normal Thought Process: Intact, Goal Oriented Thought Disorder: Not Present Hallucinations: Denies Suicidal Ideation: Denies Homicidal Ideation: Denies Insight/Judgement: Fair Sleep: Fair Appetite: Fair Muscle strength/Tone: Normal Gait/Station: Normal Psychiatric Treatment Plan - Problem List (1) Alcohol dependence Current Visit: Yes (2) Alcohol-induced mood disorder Current Visit: Yes (3) Alcohol induced sleep disorders Current Visit: Yes (4) Nicotine dependence Current Visit: No Qualifiers: (5) Opioid dependence on agonist therapy Current Visit: Yes Initial treatment plan: Patient i discharged today and referred to [facility] in [place] for outpatient treatment
[2018-08-04] MEDS: PRENATAL VITAMINS W/ FOLIC ACID TABLET (FP) PO SCH (09:47)
[2018-08-04] MEDS: OFLOXACIN 0.3% OPHTHALMIC SOLUTION 5 ML BOTTLE OU SCH (09:47)
[2018-08-04] MEDS: NICOTINE 14 MG/24 HOURS TOPICAL PATCH TD SCH (09:48)
[2018-08-04] MEDS: BACITRACIN 0.9 GM PACKET TP SCH (09:48)
== END 2018-08-04 10:30 | disposition home or self-care (01) | DRG 772 ==
LOC: YASAS 11:03 → Y6N 11:15 → UNDOADMIN 11:15 → Y5N 11:32
PROVIDERS: ADMIT Psychiatry & Neurology Psychiatry; ATTEND Psychiatry & Neurology Psychiatry
PROC: HZ42ZZZ Group Counseling for Substance Abuse Treatment, Cognitive-Behavioral (ICD-10-PCS; principal; 2018-07-06)
DX: F10.24 Alcohol dependence with alcohol-induced mood disorder (principal); F10.282 Alcohol dependence with alcohol-induced sleep disorder; F11.20 Opioid dependence, uncomplicated; F17.210 Nicotine dependence, cigarettes, uncomplicated; F41.8 Other specified anxiety disorders; H10.9 Unspecified conjunctivitis; G47.00 Insomnia, unspecified

== ENCOUNTER 2018-08-21 14:00 | Emergency (ER) | payer OTHER ==
[2018-08-21 14:12] VITALS: BP 131/85; PULSE 79; TEMP 97.9; BMI 34.4
--- NOTE | 2018-08-21 14:17 | PDOC ---
History of Present Illness - General Chief Complaint: Injury Stated Complaint: Injury Time Seen by Provider: 08/21/18 14:16 History Source: Patient Exam Limitations: No Limitations - History of Present Illness Initial Comments: 08/21/18 14:34 Patient states 2 days ago was picking up some boxes, lost footing and fell forward landing on his face. She does uncertain as if he had a LOC but states had been dizzy yesterday but that has resolved. Feels that his mental status is intact. No other injury besides nasal and mouth. Patient dislodged/ and cracked upper front teeth injuries including knocking out the right front tooth and displacing left front tooth. States banged also his nose which bled and became quite swollen. States yesterday was seen by dentist who extracted the fragments of the right front tooth and stated would probably need extraction of the left front tooth. Recommended coming to emergency department for further evaluation and possible radiology testing. Fever, denies any drainage from nose or ears, neurologically feels is intact. Occurred: reports: other (2 days ago ) Severity: reports: moderate, severe Pain Location: reports: face Loss of Consciousness: dazed Associated Symptoms (Fall): headache Past History - Travel Traveled outside of the country in the last 30 days: No Close contact w/someone who was outside of country & ill: No - Past Medical History Allergies/Adverse Reactions: Allergies Allergy/AdvReac Type Severity Reaction Status Date / Time No Known Allergies Allergy Verified 08/21/18 14:09 Home Medications: Ambulatory Orders Amox-Tr/K Cl [Augmentin 875Mg Tablet] 1 tab PO BID #20 tablet 08/21/18 Methadone [Dolophine -] 80 mg PO DAILY 08/21/18 hydrOXYzine PAMOATE [Vistaril -] 50 mg PO TID 08/21/18 Anemia: No Asthma: No Cancer: No Cardiac Disorders: No CVA: No COPD: No CHF: No Dementia: No Diabetes: No GI Disorders: No Disorders: No HTN: No Hypercholesterolemia: No Kidney Stones: No Liver Disease: No Seizures: No Thyroid Disease: No - Surgical History Abdominal Surgery: No Appendectomy: No Cardiac Surgery: No Cholecystectomy: No Lung Surgery: No Neurologic Surgery: No Orthopedic Surgery: No - Reproductive History Testicular Surgery: No - Immunization History Immunization Up to Date: Yes - Suicide/Smoking/Psychosocial Hx Smoking History: Never smoked Have you smoked in the past 12 months: Yes Number of Cigarettes Smoked Daily: 5 Cigars Per Day: 0 'Breaking Loose' booklet given: 09/06/16 Hx Alcohol Use: No Drug/Substance Use Hx: No Substance Use Type: Marijuana Hx Substance Use Treatment: Yes ([facility]) Trauma Specific PMHX - Complaint Specific PMHX Arthritis: No Review of Systems - Review of Systems Able to Perform ROS?: Yes Is the patient limited Yoruba proficient: Yes Constitutional: Yes: Symptoms Reported, See HPI, Malaise. No: Chills, Fever HEENTM: Yes: Symptoms Reported, See HPI, Nose Pain, Nose Congestion, Nose Bleeding, Mouth Pain, Mouth Swelling Respiratory: No: Symptoms reported All Other Systems: Reviewed and Negative *Physical Exam - Vital Signs Last Vital Signs Temp Pulse Resp BP Pulse Ox 97.9 F 79 18 131/85 98 08/21/18 14:10 08/21/18 14:10 08/21/18 14:10 08/21/18 14:10 08/21/18 14:10 - Physical Exam General Appearance: Yes: Nourished, Appropriately Dressed, Apparent Distress, Mild Distress, Moderate Distress HEENT: positive: SVETA, Normal ENT Inspection (no hemotympanum, no drainage from nose or ears, no evidence of skull fracture), TMs Normal, Nasal Congestion ( scoring induration to the right anterior aspect of nasal canal, no septal hematoma area has swelling and some crepitus to the bridge of nose however no orbital tenderness crepitus or step-offs. EOMs are intact), Rhinorrhea Neck: positive: Supple. negative: Lymphadenopathy (R), Lymphadenopathy (L) Respiratory/Chest: positive: Lungs Clear Gastrointestinal/Abdominal: positive: Soft. 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 Here here where I'm feeling like he saw was about her nostril is Praneeth and from striking into the left problem), Bruising. negative : Normal Color Neurologic: positive: radiator fitter II-XII NML intact, Fully Oriented, Alert, Normal Mood/ Affect, Normal Response, Motor Strength 5/5 Moderate Sedation - Procedure Monitoring Vital Signs: Procedure Monitoring Vital Signs Temperature 97.9 F 08/21/18 14:10 Pulse Rate 79 08/21/18 14:10 Respiratory Rate 18 08/21/18 14:10 Blood Pressure 131/85 08/21/18 14:10 O2 Sat by Pulse Oximetry (%) 98 08/21/18 14:10 Progress Note - Progress Note Progress Note: x-ray shows small nasal tip fracture, other structures Intact.Started on AUGMENTIN AND GIVEN FIR DOSE HERE> Encouraged to follow up with as scheduled and ENT withinweek after swelling resolves *DC/Admit/Observation/Transfer Diagnosis at time of Disposition: Nasal bones, closed fracture Qualifiers: Encounter type: initial encounter Qualified Code(s): S02.2XXA - Fracture of nasal bones, initial encounter for closed fracture Tooth avulsion Qualifiers: Encounter type: initial encounter Qualified Code(s): S03.2XXA - Dislocation of tooth, initial encounter - Discharge Dispostion Disposition: HOME Condition at time of disposition: Stable Decision to Admit order: No - Prescriptions Prescriptions: Amox-Tr/K Cl [Augmentin 875Mg Tablet] 1 tab PO BID #20 tablet - Referrals - Patient Instructions Printed Discharge Instructions: DI for Nose Fracture, DI for Fractured Tooth Additional Instructions: Rest, drink lots of fluids: Teas, water, soups Saltwater gargles/ keep mouth clean and rinse after each meal May use wet teabag for pain relief to area Avoid hard chewing foods, stick to ice cream, Jell-O, yogurt etc. Tylenol or Motrin for fever and pain Complete all medication as prescribed Seek dental appointment as soon as possible for evaluation of dental injury/pain Followup with private physician in one to 2 days as needed Return to emergency department for worsened symptoms, fevers, swelling to face or worsened pain - Post Discharge Activity Forms/Work/School Notes: Back to Work
[2018-08-21] MEDS ORDERED: AMOX TR/POT CLAV 875MG/125MG TABLETS (FP) PO ONE (15:10)
[2018-08-21] MEDS ORDERED: AMOX TR/POT CLAV 875MG/125MG TABLETS (FP) ONE (15:12)
== END 2018-08-21 15:20 | disposition home or self-care (01) ==
LOC: JER 14:00 → JERFT 14:00
DX: S02.2XXA Fracture of nasal bones, initial encounter for closed fracture (principal); S02.5XXA Fracture of tooth (traumatic), initial encounter for closed fracture; W18.39XA Other fall on same level, initial encounter; Y93.89 Activity, other specified; Y92.89 Other specified places as the place of occurrence of the external cause; Y99.8 Other external cause status
CPT/HCPCS: 70160-TC-FY; 99281-25

== ENCOUNTER 2020-01-30 15:48 | Emergency (ER) | payer OTHER ==
--- NOTE | 2020-01-30 16:08 | PDOC ---
Rapid Medical Evaluation Time Seen by Provider: 01/30/20 16:03 Medical Evaluation: Allergies Allergy/AdvReac Type Severity Reaction Status Date / Time No Known Allergies Allergy Verified 08/21/18 14:09 01/30/20 16:05 CC: bit by his dog 2- 3 weeks ago and wants to get the rabies vaccine. Pt's dog has not demonstrated s/s of rabies. Pt is very anxious and high strung Exam: vss, appears agitated Plan: try to educate his options and the possibility of quarantining the dog but pt still wants the vaccine Discharge Disposition - Diagnosis Dog bite - Referrals - Patient Instructions - Post Discharge Activity
[2020-01-30 16:19] VITALS: BP 110/69; PULSE 74; TEMP 98.1; BMI 26.8
[2020-01-30] MEDS ORDERED: DIPHTH,PERTUSS(ACELL),TET 0.5 ML DISP.SYRIN IM ONE ×2 (16:35→16:42)
--- NOTE | 2020-01-30 16:41 | PDOC ---
History of Present Illness - General Chief Complaint: Bite Stated Complaint: RABIES VACCINATION Time Seen by Provider: 01/30/20 16:03 History Source: Patient Exam Limitations: No Limitations - History of Present Illness Initial Comments: 01/30/20 16:36 HISTORY OF PRESENT ILLNESS: 29-year-old male denies medical history presents emergency department for evaluation of potential rabies vaccination status post dog bite which occurred 3 weeks ago. Patient reports it was his own dog who became agitated while getting a bath and nipped him in the left wrist. Patient reports the dog has not had any change in behavior over the past 3 weeks. The dog's last rabies vaccine was in September 2018 and was unable to get repeat vaccination due to COVID. Patient has an appointment with the dog's fine hairer on 02/12. No recent travel or sick contacts. PAST MEDICAL HISTORY: Denies past medical history SURGICAL HISTORY: Denies ALLERGIES: No known drug allergies REVIEW OF SYSTEMS General/Constitutional: Denies fever or chills. Denies weakness, weight change. HEENT: Denies change in vision. Denies ear pain or discharge. Denies sore throat. Cardiovascular: Denies chest pain or shortness of breath. Respiratory: Denies cough, wheezing, or hemoptysis. Gastrointestinal: Denies nausea, vomiting, diarrhea or constipation. Denies rectal bleeding. Genitourinary: Denies dysuria, frequency, or change in urination. Musculoskeletal: Denies joint or muscle swelling or pain. Denies neck or back pain. Skin and breasts: Denies rash or easy bruising. Neurologic: Denies headache, vertigo, loss of consciousness, or loss of sensation. Psychiatric: Denies depression or anxiety. Endocrine: Denies increased thirst. Denies abnormal weight change. Hematologic/Lymphatic: Denies anemia, easy bleeding, or history of blood clots. Allergic/Immunologic: Denies hives or skin allergy. Denies latex allergy. PHYSICAL EXAM General Appearance: Anxious appearing, appropriately dressed. No apparent distress, no intoxication. Integumentary: Appropriate color, dry, warm. No cyanosis, erythema, jaundice or rash Past History - Medical History Allergies/Adverse Reactions: Allergies Allergy/AdvReac Type Severity Reaction Status Date / Time No Known Allergies Allergy Verified 08/21/18 14:09 Home Medications: Ambulatory Orders Amox-Tr/K Cl [Augmentin 875Mg Tablet] 1 tab PO BID #20 tablet 08/21/18 Methadone [Dolophine -] 80 mg PO DAILY 08/21/18 hydrOXYzine PAMOATE [Vistaril -] 50 mg PO Q8H PRN #30 capsule 08/25/18 hydrOXYzine PAMOATE [Vistaril -] 50 mg PO Q8H #28 capsule 09/22/18 hydrOXYzine PAMOATE [Vistaril -] 50 mg PO Q12H PRN #30 capsule 11/17/18 hydrOXYzine PAMOATE [Vistaril -] 25 mg PO BID #60 capsule 11/30/19 hydrOXYzine PAMOATE [Vistaril -] 25 mg PO BID #60 capsule 12/27/19 Anemia: No Asthma: No Cancer: No Cardiac Disorders: No CVA: No COPD: No CHF: No Dementia: No Diabetes: No GI Disorders: No Disorders: No HTN: No Hypercholesterolemia: No Kidney Stones: No Liver Disease: No Seizures: No Thyroid Disease: No - Surgical History Abdominal Surgery: No Appendectomy: No Cardiac Surgery: No Cholecystectomy: No Lung Surgery: No Neurologic Surgery: No Orthopedic Surgery: No - Reproductive History Testicular Surgery: No - Immunization History Immunization Up to Date: Yes - Psycho-Social/Smoking History Smoking History: Never smoked Have you smoked in the past 12 months: No Number of Cigarettes Smoked Daily: 5 Cigars Per Day: 0 Information on smoking cessation initiated: No 'Breaking Loose' booklet given: 09/06/16 - Substance Abuse Hx (Audit-C & DAST Scrn) How often the patient has a drink containing alcohol: Never Score: In Men: 4 or > Positive; In Women: 3 or > Positive: 0 Screen Result (Pos requires Nsg. Audit-10AR): Negative In the last yr the pt used illegal drug/Rx for NonMed reason: No Score: Yes response is considered Positive: 0 Screen Result (Positive result requires Nsg. DAST-10): Negative *Physical Exam - Vital Signs Last Vital Signs Temp Pulse Resp BP Pulse Ox 98.1 F 74 18 110/69 100 01/30/20 16:00 01/30/20 16:00 01/30/20 16:00 01/30/20 16:00 01/30/20 16:00 Medical Decision Making - Medical Decision Making 01/30/20 16:39 A/P: 29-year-old male here for evaluation status post dog bite which occurred 3 weeks ago January Physical exam is unremarkable Does not remember last tetanus immunization Extensive counseling performed regarding rabies vaccination and how this was a provoked attack by family-owned pet who had previous vaccination and does not go outside the house. Patient does not meet criteria for rabies vaccination at this time given normal behavior of the dog more than 10 days after incident occurred. [employer] Discharge home Discharge - Discharge Information Problems reviewed: Yes Clinical Impression/Diagnosis: Dog bite Qualifiers: Encounter type: initial encounter Qualified Code(s): W54.0XXA - Bitten by dog, initial encounter Condition: Stable Disposition: HOME - Admission No - Follow up/Referral Referrals: Raleigh Beasley MD [Primary Care Provider] - - Patient Discharge Instructions Additional Instructions: It is important that you follow-up with your primary doctor for reevaluation. Thank you very much for choosing us to provide your emergent healthcare needs. - Post Discharge Activity
== END 2020-01-30 17:05 | disposition home or self-care (01) ==
LOC: JER 15:48 → JERFT 15:48
PROC: 3E0234Z Introduction of Serum, Toxoid and Vaccine into Muscle, Percutaneous Approach (ICD-10-PCS; principal; 2020-01-30)
DX: S61.552A Open bite of left wrist, initial encounter (principal); W54.0XXA Bitten by dog, initial encounter
CPT/HCPCS: 90471; 90715; 99282-25

== ENCOUNTER 2020-03-23 11:08 | Emergency (ER) | payer OTHER ==
[2020-03-23 11:14] VITALS: BP 122/74; PULSE 78; TEMP 98.5; BMI 37.5
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
== END 2020-03-23 11:50 | disposition home or self-care (01) ==
LOC: JERFT 11:08
DX: S60.222A Contusion of left hand, initial encounter (principal); S20.222A Contusion of left back wall of thorax, initial encounter
CPT/HCPCS: 71101-TC-LT-FY; 73130-TC-LT-FY; 99283-25

== ENCOUNTER 2020-03-24 15:36 | Inpatient (IN) | payer OTHER ==
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
[2020-03-24] MEDS ORDERED: METHOCARBAMOL 500 MG TABLET PO PRN (19:22)
[2020-03-24] MEDS ORDERED: MAG HYDROX/AL HYDROX/SIMETH 30 ML UNIT-DOSE CUP PO PRN (19:22)
[2020-03-24] MEDS ORDERED: MAGNESIUM CITRATE 300 ML BOTTLE PO PRN (19:22)
[2020-03-24] MEDS ORDERED: MENTHOL/PHENOL 1 EACH UD MM PRN (19:22)
[2020-03-24] MEDS ORDERED: P-EPHED 60MG/TRIPROLIDI 2.5MG TABLET PO PRN (19:22)
[2020-03-24] MEDS ORDERED: guaiFENesin 200 MG/10 ML 10 ML UNIT-DOSE CUPS PO PRN (19:22)
[2020-03-24] MEDS ORDERED: ONDANSETRON *ODT* 4 MG TABLET SL PRN (19:22)
[2020-03-24] MEDS ORDERED: ACETAMINOPHEN 325 MG TABLET (FP) PO PRN ×2 (19:22)
[2020-03-24] MEDS ORDERED: IBUPROFEN 400 MG TABLET (FP) PO PRN (19:22)
[2020-03-24] MEDS ORDERED: chlordiazePOXIDE HCL 25 MG CAPSULE PO PRN (19:22)
[2020-03-24] MEDS ORDERED: DICYCLOMINE HCL 10 MG CAPSULE PO PRN (19:22)
[2020-03-24] MEDS ORDERED: BISMUTH SUBSALICYLATE 524 MG/30 ML UD PO PRN (19:22)
[2020-03-24] MEDS ORDERED: NICOTINE POLACRILEX 2 MG GUM BUC PRN (19:22)
[2020-03-24] MEDS ORDERED: MAGNESIUM HYDROX 2400MG/30ML ORAL SUSPENSION 30 ML CUP PO PRN (19:22)
[2020-03-24 20:29] VITALS: BMI 27.3
[2020-03-24] MEDS: MELATONIN 5 MG TABLETS PO SCH (21:09)
[2020-03-24] MEDS: hydrOXYzine PAMOATE 25 MG CAPSULE (FP) PO PRN (21:09)
[2020-03-24] MEDS: THIAMINE HCL 100 MG TABLET (FP) PO SCH (21:09)
[2020-03-24] MEDS: chlordiazePOXIDE HCL 25 MG CAPSULE PO SCH (22:35)
[2020-03-25] MEDS: chlordiazePOXIDE HCL 25 MG CAPSULE PO SCH ×4 (05:45→22:08)
[2020-03-25] MEDS ORDERED: METHADONE 40 MG, METHADONE 10 MG PO SCH (09:45)
[2020-03-25] MEDS ORDERED: METHADONE HCL 10 MG TABLET PO SCH ×2 (09:45→10:00)
[2020-03-25] MEDS ORDERED: METHADONE HCL 10 MG TABLET ONE (10:13)
[2020-03-25] MEDS ORDERED: METHADONE HCL 40 MG DISPERSABLE TABLET ONE (10:14)
[2020-03-25] MEDS: METHADONE 40 MG, METHADONE 10 MG PO SCH (10:18)
[2020-03-25] MEDS: NICOTINE 14 MG/24 HOURS TOPICAL PATCH TD SCH (10:20)
[2020-03-25] MEDS: PRENATAL VITAMINS W/ FOLIC ACID TABLET (FP) PO SCH (10:21)
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
[2020-03-25 12:11] LABS: HEMATOCRIT 36.6 % (35.4-49); HEMOGLOBIN 12.4 GM/dL (11.7-16.9); MCH 31.3 pg (25.7-33.7); MCHC 33.8 g/dl (32.0-35.9); MEAN CELL VOLUME 92.5 fl (80-96); MEAN PLT VOLUME 9.1 fl (7.5-11.1); PLATELET COUNT 170 K/MM3 (134-434); RBC 3.95 M/mm3 (4.00-5.60); RDW 12.7 % (11.9-15.9)
--- NOTE | 2020-03-25 12:20 | PN ---
S CIWA - CIWA Score Nausea/Vomitin-No Nausea/No Vomiting Muscle Tremors: 3 Anxiety: 3 Agitation: 2 Paroxysmal Sweats: 2 Orientation: 0-Oriented Tacttile Disturbances: 0-None Auditory Disturbances: 0-None Visual Disturbances: 0-None Headache: 0-None Present CIWA-Ar Total Score: 10 BHS Progress Note (SOAP) Subjective: Complaints of anxiety, agitation, shakes and sweats. Objective: 03/25/20 12:20 Vital Signs 03/25/20 03/25/20 05:25 08:57 Temperature 97.3 F L 97.8 F Pulse Rate 61 62 Respiratory 16 18 Rate Blood Pressure 118/66 128/63 O2 Sat by Pulse 100 Oximetry (%) Labs pending. Assessment: 03/25/20 12:20 Patient was seen and examined at bedside. Alert and oriented x 3, in no acute respiratory distress. Full ROM, ambulatory without assistance. Withdrawal symptoms. Plan: Continue detox protocol.
[2020-03-25 12:27] LABS: ALBUMIN 3.6 g/dl (3.4-5.0); BILIRUBIN,TOTAL 0.8 mg/dL (0.2-1); BLOOD UREA NITROGEN 10.6 mg/dL (7-18); CALCIUM 8.9 mg/dL (8.5-10.1); TOT PROT 6.9 g/dl (6.4-8.2)
[2020-03-25] MEDS: hydrOXYzine PAMOATE 25 MG CAPSULE (FP) PO PRN (13:36)
[2020-03-25] MEDS: MELATONIN 5 MG TABLETS PO SCH (22:08)
[2020-03-25] MEDS: THIAMINE HCL 100 MG TABLET (FP) PO SCH (22:08)
[2020-03-26] MEDS ORDERED: METHADONE HCL 10 MG TABLET ONE (04:03)
[2020-03-26] MEDS ORDERED: METHADONE HCL 40 MG DISPERSABLE TABLET ONE (04:04)
[2020-03-26] MEDS: chlordiazePOXIDE HCL 25 MG CAPSULE PO SCH ×4 (06:23→22:19)
[2020-03-26] MEDS: METHADONE 40 MG, METHADONE 10 MG PO SCH (06:23)
--- NOTE | 2020-03-26 10:22 | PN ---
[facility] CIWA - CIWA Score Nausea/Vomitin-No Nausea/No Vomiting Muscle Tremors: None Anxiety: 2 Agitation: 1-Slight > Activity Paroxysmal Sweats: 3 Orientation: 0-Oriented Tacttile Disturbances: 0-None Auditory Disturbances: 0-None Visual Disturbances: 0-None Headache: 2-Mild CIWA-Ar Total Score: 8 S Progress Note (SOAP) Subjective: c/o anxiety, irritability, sweats, and headache. Objective: 03/26/20 10:21 Vital Signs 03/26/20 03/26/20 07:19 08:20 Temperature 97.1 F L 97.3 F L Pulse Rate 57 L 75 Respiratory 18 18 Rate Blood Pressure 101/68 123/72 Laboratory Last Values WBC 6.0 K/mm3 (4.0-10.0) 03/25/20 07:15 RBC 3.95 M/mm3 (4.00-5.60) L 03/25/20 07:15 Hgb 12.4 GM/dL (11.7-16.9) 03/25/20 07:15 Hct 36.6 % (35.4-49) 03/25/20 07:15 MCV 92.5 fl (80-96) 03/25/20 07:15 MCH 31.3 pg (25.7-33.7) 03/25/20 07:15 MCHC 33.8 g/dl (32.0-35.9) 03/25/20 07:15 RDW 12.7 % (11.9-15.9) 03/25/20 07:15 Plt Count 170 K/MM3 (134-434) 03/25/20 07:15 MPV 9.1 fl (7.5-11.1) 03/25/20 07:15 Sodium 139 mmol/L (136-145) 03/25/20 07:15 Potassium 4.0 mmol/L (3.5-5.1) 03/25/20 07:15 Chloride 103 mmol/L (98-107) 03/25/20 07:15 Carbon Dioxide 32 mmol/L (21-32) 03/25/20 07:15 Anion Gap 4 MMOL/L (8-16) L 03/25/20 07:15 BUN 10.6 mg/dL (7-18) 03/25/20 07:15 Creatinine 1.0 mg/dL (0.55-1.3) 03/25/20 07:15 Est GFR (CKD-EPI)AfAm 118.19 03/25/20 07:15 Est GFR (CKD-EPI)NonAf 101.97 03/25/20 07:15 Random Glucose 75 mg/dL (74-106) 03/25/20 07:15 Calcium 8.9 mg/dL (8.5-10.1) 03/25/20 07:15 Total Bilirubin 0.8 mg/dL (0.2-1) 03/25/20 07:15 AST 43 U/L (15-37) H 03/25/20 07:15 ALT 47 U/L (13-61) 03/25/20 07:15 Alkaline Phosphatase 31 U/L (45-117) L 03/25/20 07:15 Total Protein 6.9 g/dl (6.4-8.2) 03/25/20 07:15 Albumin 3.6 g/dl (3.4-5.0) 03/25/20 07:15 Syphilis Serology Non-reactive (NONREACTIVE) 03/25/20 07:15 Labs noted. Assessment: 03/26/20 10:22 AOX3 and in no acute respiratory. Full ROM, ambulating in the unit. Withdrawal symptoms. Plan: continue detox.
[2020-03-26] MEDS: NICOTINE 14 MG/24 HOURS TOPICAL PATCH TD SCH (10:29)
[2020-03-26] MEDS: PRENATAL VITAMINS W/ FOLIC ACID TABLET (FP) PO SCH (10:30)
[2020-03-26] MEDS: hydrOXYzine PAMOATE 25 MG CAPSULE (FP) PO PRN ×3 (10:33→22:19)
[2020-03-26 18:07] LABS: URINE APPEARANCE CLEAR; URINE BILIRUBIN NEGATIVE (NEGATIVE); URINE COLOR YELLOW; URINE GLUCOSE (UA) NEGATIVE (NEGATIVE); URINE KETONE NEGATIVE (NEGATIVE); URINE LEUK ESTERASE NEGATIVE (NEGATIVE); URINE NITRITE NEGATIVE (NEGATIVE); URINE PROTEIN NEGATIVE (NEGATIVE); URINE UROBILINOGEN 0.2 mg/dL (0.2-1.0)
--- NOTE | 2020-03-26 18:28 | EKG ---
Test Reason : Blood Pressure : / mmHG Vent. Rate : 059 BPM Atrial Rate : 059 BPM P-R Int : 166 ms QRS Dur : 092 ms QT Int : 430 ms P-R-T Axes : 052 025 041 degrees QTc Int : 425 ms SINUS BRADYCARDIA WITH SINUS ARRHYTHMIA OTHERWISE NORMAL ECG WHEN COMPARED WITH ECG OF 06-SEP-2016 02:11, NO SIGNIFICANT CHANGE WAS FOUND Confirmed by SUSSY OH MD ([id number]) on 03/26/2020 6:27:36 PM Referred By: Confirmed By:SUSSY OH MD
[2020-03-26] MEDS: SUVOREXANT 10 MG TABLET PO PRN (22:19)
[2020-03-26] MEDS: THIAMINE HCL 100 MG TABLET (FP) PO SCH (22:19)
[2020-03-26] MEDS: MELATONIN 5 MG TABLETS PO SCH (23:39)
[2020-03-27] MEDS ORDERED: chlordiazePOXIDE HCL 10 MG CAPSULE PO PRN
[2020-03-27] MEDS ORDERED: METHADONE HCL 10 MG TABLET ONE (04:54)
[2020-03-27] MEDS ORDERED: METHADONE HCL 40 MG DISPERSABLE TABLET ONE (04:55)
[2020-03-27] MEDS: METHADONE 40 MG, METHADONE 10 MG PO SCH (06:32)
[2020-03-27] MEDS: chlordiazePOXIDE HCL 10 MG CAPSULE PO SCH ×4 (06:32→22:31)
[2020-03-27] MEDS: hydrOXYzine PAMOATE 25 MG CAPSULE (FP) PO PRN ×4 (06:32→22:32)
[2020-03-27] MEDS: PRENATAL VITAMINS W/ FOLIC ACID TABLET (FP) PO SCH (10:38)
[2020-03-27] MEDS: NICOTINE 14 MG/24 HOURS TOPICAL PATCH TD SCH (10:42)
--- NOTE | 2020-03-27 11:25 | PN ---
S CIWA - CIWA Score Nausea/Vomitin-No Nausea/No Vomiting Muscle Tremors: None Anxiety: 2 Agitation: 1-Slight > Activity Paroxysmal Sweats: 3 Orientation: 0-Oriented Tacttile Disturbances: 0-None Auditory Disturbances: 0-None Visual Disturbances: 0-None Headache: 0-None Present CIWA-Ar Total Score: 6 [facility] Progress Note (SOAP) Subjective: c/o anxiety, headache, and sweats. Objective: 03/27/20 11:24 Vital Signs 03/27/20 03/27/20 07:26 08:58 Temperature 97.3 F L 98.1 F Pulse Rate 67 86 Respiratory 18 18 Rate Blood Pressure 124/71 119/64 O2 Sat by Pulse 98 99 Oximetry (%) Laboratory Last Values WBC 6.0 K/mm3 (4.0-10.0) 03/25/20 07:15 RBC 3.95 M/mm3 (4.00-5.60) L 03/25/20 07:15 Hgb 12.4 GM/dL (11.7-16.9) 03/25/20 07:15 Hct 36.6 % (35.4-49) 03/25/20 07:15 MCV 92.5 fl (80-96) 03/25/20 07:15 MCH 31.3 pg (25.7-33.7) 03/25/20 07:15 MCHC 33.8 g/dl (32.0-35.9) 03/25/20 07:15 RDW 12.7 % (11.9-15.9) 03/25/20 07:15 Plt Count 170 K/MM3 (134-434) 03/25/20 07:15 MPV 9.1 fl (7.5-11.1) 03/25/20 07:15 Sodium 139 mmol/L (136-145) 03/25/20 07:15 Potassium 4.0 mmol/L (3.5-5.1) 03/25/20 07:15 Chloride 103 mmol/L (98-107) 03/25/20 07:15 Carbon Dioxide 32 mmol/L (21-32) 03/25/20 07:15 Anion Gap 4 MMOL/L (8-16) L 03/25/20 07:15 BUN 10.6 mg/dL (7-18) 03/25/20 07:15 Creatinine 1.0 mg/dL (0.55-1.3) 03/25/20 07:15 Est GFR (CKD-EPI)AfAm 118.19 03/25/20 07:15 Est GFR (CKD-EPI)NonAf 101.97 03/25/20 07:15 Random Glucose 75 mg/dL (74-106) 03/25/20 07:15 Calcium 8.9 mg/dL (8.5-10.1) 03/25/20 07:15 Total Bilirubin 0.8 mg/dL (0.2-1) 03/25/20 07:15 AST 43 U/L (15-37) H 03/25/20 07:15 ALT 47 U/L (13-61) 03/25/20 07:15 Alkaline Phosphatase 31 U/L (45-117) L 03/25/20 07:15 Total Protein 6.9 g/dl (6.4-8.2) 03/25/20 07:15 Albumin 3.6 g/dl (3.4-5.0) 03/25/20 07:15 Urine Color Yellow 03/26/20 15:23 Urine Appearance Clear 03/26/20 15:23 Urine pH 7.0 (5.0-8.0) 03/26/20 15:23 Ur Specific [place] 1.005 (1.010-1.035) L 03/26/20 15:23 Urine Protein Negative (NEGATIVE) 03/26/20 15:23 Urine Glucose (UA) Negative (NEGATIVE) 03/26/20 15:23 Urine Ketones Negative (NEGATIVE) 03/26/20 15:23 Urine Blood Negative (NEGATIVE) 03/26/20 15:23 Urine Nitrite Negative (NEGATIVE) 03/26/20 15:23 Urine Bilirubin Negative (NEGATIVE) 03/26/20 15:23 Urine Urobilinogen 0.2 mg/dL (0.2-1.0) 03/26/20 15:23 Ur Leukocyte Esterase Negative (NEGATIVE) 03/26/20 15:23 Syphilis Serology Non-reactive (NONREACTIVE) 03/25/20 07:15 COVID-19 (BREANNA) Not detected (Not Detected) 03/24/20 05:50 Labs noted. Assessment: 03/27/20 11:24 AOX3, in no acute respiratory distress. Full ROM, ambulating in the unit. Withdrawal symptoms. Plan: continue detox.
[2020-03-27] MEDS: SUVOREXANT 10 MG TABLET PO PRN (22:31)
[2020-03-27] MEDS: THIAMINE HCL 100 MG TABLET (FP) PO SCH (22:31)
[2020-03-28] MEDS: MELATONIN 5 MG TABLETS PO SCH ×2 (00:24→22:39)
[2020-03-28] MEDS: hydrOXYzine PAMOATE 25 MG CAPSULE (FP) PO PRN ×4 (01:31→17:07)
[2020-03-28] MEDS ORDERED: METHADONE HCL 10 MG TABLET ONE (04:58)
[2020-03-28] MEDS ORDERED: METHADONE HCL 40 MG DISPERSABLE TABLET ONE (04:59)
[2020-03-28] MEDS: METHADONE 40 MG, METHADONE 10 MG PO SCH (06:36)
[2020-03-28] MEDS: chlordiazePOXIDE HCL 10 MG CAPSULE PO SCH ×2 (06:37→17:05)
[2020-03-28] MEDS: PRENATAL VITAMINS W/ FOLIC ACID TABLET (FP) PO SCH (10:15)
[2020-03-28] MEDS: NICOTINE 14 MG/24 HOURS TOPICAL PATCH TD SCH (10:19)
--- NOTE | 2020-03-28 11:22 | PN ---
[facility] CIWA - CIWA Score Nausea/Vomitin-No Nausea/No Vomiting Muscle Tremors: None Anxiety: 2 Agitation: 0-Normal Activity Paroxysmal Sweats: 2 Orientation: 0-Oriented Tacttile Disturbances: 0-None Auditory Disturbances: 0-None Visual Disturbances: 0-None Headache: 0-None Present CIWA-Ar Total Score: 4 S Progress Note (SOAP) Subjective: c/o mild withdrawal symptoms. Objective: 03/28/20 11:21 Vital Signs 03/28/20 03/28/20 05:35 09:00 Temperature 97.7 F 98.1 F Pulse Rate 66 77 Respiratory 18 18 Rate Blood Pressure 116/63 114/62 O2 Sat by Pulse 96 Oximetry (%) Laboratory Last Values WBC 6.0 K/mm3 (4.0-10.0) 03/25/20 07:15 RBC 3.95 M/mm3 (4.00-5.60) L 03/25/20 07:15 Hgb 12.4 GM/dL (11.7-16.9) 03/25/20 07:15 Hct 36.6 % (35.4-49) 03/25/20 07:15 MCV 92.5 fl (80-96) 03/25/20 07:15 MCH 31.3 pg (25.7-33.7) 03/25/20 07:15 MCHC 33.8 g/dl (32.0-35.9) 03/25/20 07:15 RDW 12.7 % (11.9-15.9) 03/25/20 07:15 Plt Count 170 K/MM3 (134-434) 03/25/20 07:15 MPV 9.1 fl (7.5-11.1) 03/25/20 07:15 Sodium 139 mmol/L (136-145) 03/25/20 07:15 Potassium 4.0 mmol/L (3.5-5.1) 03/25/20 07:15 Chloride 103 mmol/L (98-107) 03/25/20 07:15 Carbon Dioxide 32 mmol/L (21-32) 03/25/20 07:15 Anion Gap 4 MMOL/L (8-16) L 03/25/20 07:15 BUN 10.6 mg/dL (7-18) 03/25/20 07:15 Creatinine 1.0 mg/dL (0.55-1.3) 03/25/20 07:15 Est GFR (CKD-EPI)AfAm 118.19 03/25/20 07:15 Est GFR (CKD-EPI)NonAf 101.97 03/25/20 07:15 Random Glucose 75 mg/dL (74-106) 03/25/20 07:15 Calcium 8.9 mg/dL (8.5-10.1) 03/25/20 07:15 Total Bilirubin 0.8 mg/dL (0.2-1) 03/25/20 07:15 AST 43 U/L (15-37) H 03/25/20 07:15 ALT 47 U/L (13-61) 03/25/20 07:15 Alkaline Phosphatase 31 U/L (45-117) L 03/25/20 07:15 Total Protein 6.9 g/dl (6.4-8.2) 03/25/20 07:15 Albumin 3.6 g/dl (3.4-5.0) 03/25/20 07:15 Urine Color Yellow 03/26/20 15:23 Urine Appearance Clear 03/26/20 15:23 Urine pH 7.0 (5.0-8.0) 03/26/20 15:23 Ur Specific [place] 1.005 (1.010-1.035) L 03/26/20 15:23 Urine Protein Negative (NEGATIVE) 03/26/20 15:23 Urine Glucose (UA) Negative (NEGATIVE) 03/26/20 15:23 Urine Ketones Negative (NEGATIVE) 03/26/20 15:23 Urine Blood Negative (NEGATIVE) 03/26/20 15:23 Urine Nitrite Negative (NEGATIVE) 03/26/20 15:23 Urine Bilirubin Negative (NEGATIVE) 03/26/20 15:23 Urine Urobilinogen 0.2 mg/dL (0.2-1.0) 03/26/20 15:23 Ur Leukocyte Esterase Negative (NEGATIVE) 03/26/20 15:23 Syphilis Serology Non-reactive (NONREACTIVE) 03/25/20 07:15 COVID-19 (BREANNA) Not detected (Not Detected) 03/24/20 05:50 Labs noted. Assessment: 03/28/20 11:21 AOX3, in no acute respiratory distress. Full ROM, ambulating in the unit. Mild Withdrawal symptoms. For d/c tomorrow. Plan: continue detox. D/C in AM.
[2020-03-28] MEDS ORDERED: SUVOREXANT 10 MG TABLET PO ONE (22:22)
[2020-03-28] MEDS: THIAMINE HCL 100 MG TABLET (FP) PO SCH (22:37)
[2020-03-29] MEDS: hydrOXYzine PAMOATE 25 MG CAPSULE (FP) PO PRN ×2 (00:02→06:18)
[2020-03-29] MEDS ORDERED: METHADONE HCL 10 MG TABLET ONE (04:42)
[2020-03-29] MEDS ORDERED: METHADONE HCL 40 MG DISPERSABLE TABLET ONE (04:42)
[2020-03-29] MEDS ORDERED: chlordiazePOXIDE HCL 10 MG CAPSULE PO ONE (05:00)
[2020-03-29] MEDS: METHADONE 40 MG, METHADONE 10 MG PO SCH (06:17)
[2020-03-29] MEDS: PRENATAL VITAMINS W/ FOLIC ACID TABLET (FP) PO SCH (10:30)
--- NOTE | 2020-03-29 10:30 | DS ---
[facility] Detox Discharge Summary Admission Date: 03/24/20 Discharge Date: 03/29/20 - History Present History: Alcohol Dependence, Cannabis Dependence, MMTP Additional Comments: Pt is medically cleared and discharged today. Pt completed the detox protocol. Pt is encouraged to follow-up with an outpatient CD program as discussed with his counselor and also to follow-up with his pmd which he verbalized understanding. Pt is AOX3, in no acute respiratory distress, Full ROM, and ambulatory. Pertinent Past History: h/o alcohol use disorder. - Physical Exam Results Vital Signs: Vital Signs Temperature 97.0 F L 03/29/20 05:40 Pulse Rate 56 L 03/29/20 05:40 Respiratory Rate 18 03/29/20 05:40 Blood Pressure 104/61 03/29/20 05:40 O2 Sat by Pulse Oximetry (%) 96 03/29/20 05:40 Vital Signs 03/29/20 05:40 Temperature 97.0 F L Pulse Rate 56 L Respiratory 18 Rate Blood Pressure 104/61 O2 Sat by Pulse 96 Oximetry (%) Laboratory Last Values WBC 6.0 K/mm3 (4.0-10.0) 03/25/20 07:15 RBC 3.95 M/mm3 (4.00-5.60) L 03/25/20 07:15 Hgb 12.4 GM/dL (11.7-16.9) 03/25/20 07:15 Hct 36.6 % (35.4-49) 03/25/20 07:15 MCV 92.5 fl (80-96) 03/25/20 07:15 MCH 31.3 pg (25.7-33.7) 03/25/20 07:15 MCHC 33.8 g/dl (32.0-35.9) 03/25/20 07:15 RDW 12.7 % (11.9-15.9) 03/25/20 07:15 Plt Count 170 K/MM3 (134-434) 03/25/20 07:15 MPV 9.1 fl (7.5-11.1) 03/25/20 07:15 Sodium 139 mmol/L (136-145) 03/25/20 07:15 Potassium 4.0 mmol/L (3.5-5.1) 03/25/20 07:15 Chloride 103 mmol/L (98-107) 03/25/20 07:15 Carbon Dioxide 32 mmol/L (21-32) 03/25/20 07:15 Anion Gap 4 MMOL/L (8-16) L 03/25/20 07:15 BUN 10.6 mg/dL (7-18) 03/25/20 07:15 Creatinine 1.0 mg/dL (0.55-1.3) 03/25/20 07:15 Est GFR (CKD-EPI)AfAm 118.19 03/25/20 07:15 Est GFR (CKD-EPI)NonAf 101.97 03/25/20 07:15 Random Glucose 75 mg/dL (74-106) 03/25/20 07:15 Calcium 8.9 mg/dL (8.5-10.1) 03/25/20 07:15 Total Bilirubin 0.8 mg/dL (0.2-1) 03/25/20 07:15 AST 43 U/L (15-37) H 03/25/20 07:15 ALT 47 U/L (13-61) 03/25/20 07:15 Alkaline Phosphatase 31 U/L (45-117) L 03/25/20 07:15 Total Protein 6.9 g/dl (6.4-8.2) 03/25/20 07:15 Albumin 3.6 g/dl (3.4-5.0) 03/25/20 07:15 Urine Color Yellow 03/26/20 15:23 Urine Appearance Clear 03/26/20 15:23 Urine pH 7.0 (5.0-8.0) 03/26/20 15:23 Ur Specific [place] 1.005 (1.010-1.035) L 03/26/20 15:23 Urine Protein Negative (NEGATIVE) 03/26/20 15:23 Urine Glucose (UA) Negative (NEGATIVE) 03/26/20 15:23 Urine Ketones Negative (NEGATIVE) 03/26/20 15:23 Urine Blood Negative (NEGATIVE) 03/26/20 15:23 Urine Nitrite Negative (NEGATIVE) 03/26/20 15:23 Urine Bilirubin Negative (NEGATIVE) 03/26/20 15:23 Urine Urobilinogen 0.2 mg/dL (0.2-1.0) 03/26/20 15:23 Ur Leukocyte Esterase Negative (NEGATIVE) 03/26/20 15:23 Syphilis Serology Non-reactive (NONREACTIVE) 03/25/20 07:15 COVID-19 (BREANNA) Not detected (Not Detected) 03/24/20 05:50 Labs noted. Pertinent Admission Physical Exam Findings: withdrawal symptoms. - Treatment Hospital Course: Detox Protocol Followed, Detoxed Safely, Responded well, Discharged Condition Good - Medication Discharge Medications: Ambulatory Orders Methadone HCl 50 mg PO DAILY 03/24/20 hydrOXYzine PAMOATE [Vistaril -] 25 mg PO BID 03/24/20 - Diagnosis (1) Cannabis abuse Current Visit: Yes Status: Chronic (2) Nicotine dependence Current Visit: Yes Status: Chronic Qualifiers: Nicotine product type: cigarettes Substance use status: uncomplicated Qualified Code(s): F17.210 - Nicotine dependence, cigarettes, uncomplicated (3) Opioid dependence on agonist therapy Current Visit: Yes Status: Chronic (4) Alcohol dependence Current Visit: No Status: Chronic (5) Alcohol dependence with uncomplicated withdrawal Current Visit: No Status: Acute - AMA Did Patient Leave Against Medical Advice: No
[2020-03-29] MEDS: NICOTINE 14 MG/24 HOURS TOPICAL PATCH TD SCH (10:31)
[2020-03-29 10:55] VITALS: BP 144/70; PULSE 85; TEMP 98
== END 2020-03-29 14:12 | disposition other institution (70) | DRG 773 ==
LOC: YASAS 15:36 → Y6N 19:13
PROVIDERS: ADMIT Allergy & Immunology; ATTEND Allergy & Immunology
PROC: HZ2ZZZZ Detoxification Services for Substance Abuse Treatment (ICD-10-PCS; principal; 2020-03-24)
DX: F10.230 Alcohol dependence with withdrawal, uncomplicated (principal); F11.20 Opioid dependence, uncomplicated; F12.20 Cannabis dependence, uncomplicated; F17.210 Nicotine dependence, cigarettes, uncomplicated; F10.24 Alcohol dependence with alcohol-induced mood disorder; F10.282 Alcohol dependence with alcohol-induced sleep disorder; F41.9 Anxiety disorder, unspecified; F32.9 Major depressive disorder, single episode, unspecified; B18.2 Chronic viral hepatitis C; Z56.0 Unemployment, unspecified; S30.0XXD Contusion of lower back and pelvis, subsequent encounter; S60.222D Contusion of left hand, subsequent encounter; Y04.0XXD Assault by unarmed brawl or fight, subsequent encounter
CPT/HCPCS: 36415; 80053; 81003; 85027; 86780; 93005; 93010; U0003

== ENCOUNTER 2020-03-29 15:57 | Inpatient (IN) | payer OTHER ==
--- NOTE | 2020-03-29 17:03 | HP ---
[facility] Rehab Assess/Revision - Admission History Admitted to Rehab from: [facility] Date of Admission to Rehab: 03/29/2020 - Vital signs Vital Signs: Vital Signs Temperature 98.6 F 03/29/20 17:05 Pulse Rate 88 03/29/20 17:05 Respiratory Rate 16 03/29/20 17:05 Blood Pressure 120/75 03/29/20 17:05 O2 Sat by Pulse Oximetry (%) - Findings Detox History & Physical reviewed: Yes Concur with findings: Yes Comments/Additional Findings: CLIENT COMPLETED ALCOHOL DETOX TODAY. TRANSFER TO REHAB - [facility] FOR CONTINUATION OF CARE. HE IS ON MMTP. COVID-19 ON 03/24/20 NEGATIVE Inpatient Rehab Admission - Rehab Decision to Admit Inpatient rehab admission?: Yes - Initial Determination Are CD services needed?: Yes Free of communicable disease: Yes Not in need of hospitalization: Yes - Rehab Admission Criteria Previous failed treatment: Yes Poor recovery environment: Yes Comorbidities: Yes Lacks judgement: No Patient is meeting Inpatient Rehab admission criteria:: Yes
[2020-03-29] MEDS ORDERED: MAG HYDROX/AL HYDROX/SIMETH 30 ML UNIT-DOSE CUP PO PRN (17:05)
[2020-03-29] MEDS ORDERED: MAGNESIUM HYDROX 2400MG/30ML ORAL SUSPENSION 30 ML CUP PO PRN (17:05)
[2020-03-29] MEDS ORDERED: IBUPROFEN 400 MG TABLET (FP) PO PRN (17:05)
[2020-03-29] MEDS ORDERED: ACETAMINOPHEN 325 MG TABLET (FP) PO PRN (17:05)
[2020-03-29] MEDS ORDERED: MAGNESIUM CITRATE 300 ML BOTTLE PO PRN (17:05)
[2020-03-29] MEDS ORDERED: LOPERAMIDE HCL 2 MG CAPSULE PO PRN (17:05)
[2020-03-29] MEDS ORDERED: P-EPHED 60MG/TRIPROLIDI 2.5MG TABLET PO PRN (17:05)
[2020-03-29] MEDS ORDERED: guaiFENesin 200 MG/10 ML 10 ML UNIT-DOSE CUPS PO PRN (17:05)
[2020-03-29] MEDS ORDERED: MENTHOL/PHENOL 1 EACH UD MM PRN (17:05)
[2020-03-29] MEDS ORDERED: NICOTINE POLACRILEX 2 MG GUM BUC PRN (17:12)
[2020-03-29] MEDS ORDERED: SUVOREXANT 10 MG TABLET PO ONE (22:00)
[2020-03-29] MEDS: hydrOXYzine PAMOATE 25 MG CAPSULE (FP) PO PRN (22:01)
[2020-03-29] MEDS: THIAMINE HCL 100 MG TABLET (FP) PO SCH (22:01)
[2020-03-30] MEDS ORDERED: METHADONE HCL 40 MG DISPERSABLE TABLET ONE (05:35)
[2020-03-30] MEDS ORDERED: METHADONE HCL 10 MG TABLET ONE (05:35)
[2020-03-30] MEDS ORDERED: METHADONE HCL 10 MG TABLET PO SCH (06:00)
[2020-03-30] MEDS: METHADONE 40 MG, METHADONE 10 MG PO SCH (06:29)
[2020-03-30] MEDS: hydrOXYzine PAMOATE 25 MG CAPSULE (FP) PO PRN ×2 (06:30→21:46)
--- NOTE | 2020-03-30 09:33 | CONSULT ---
[facility] Psychiatric Consult - Data Date of interview: 03/30/20 Admission source: [facility] Identifying data: Patient is a 29 year old single male, without children, unemployed, domiciled, and financially supported by family. This is one of multiple admissions for patient. Patient admitted to [facility] rehab for alcohol and cannabis dependence. Substance Abuse History: Smoking Cessation. Smoking history: Current every day smoker. Have you smoked in the past 12 months: Yes. Aproximately how many cigarettes per day: 3. Cigars Per Day: 0. Hx Chewing Tobacco Use: No. Initiated information on smoking cessation: Yes. 'Breaking Loose' booklet given: 03/24/20. - Substance & Tx. History. Hx Alcohol Use: Yes. Hx Substance Use: Yes. Substance Use Type: Alcohol, Prescribed (METHADONE). Hx Substance Use Treatment: Yes ([facility]). - Substances abused. Alcohol. Other (specify): QUIN DOROTHY/ BEER. Substance route: Oral. Frequency: Daily. Amount used: 2PINTS- 1-6PACK. Age of first use: 22. Date of last use: 03/24/20 (1- 6 PACK). Marijuana/Hashish. Substance route: Smoking. Frequency: 3-6 times per week (3X). Amount used: 1 BAG. Age of first use: 19. Date of last use: 03/17/20 Medical History: denies. endorses good health. Psychiatric History: Patient's psychiatric contact have occured at detox/rehab facilites and with Dr. Paniagua in the [facility]. States that he saw Dr. Paniagua to address anxiety/depression and was prescribed seroquel 50mg BID. Patient was admitted to the detox/rehab unit at [facility] in December/January of 2018 and was prescribed seroquel 50mg BID and vistaril 50mg prn for anxiety. He is currently on methadone maintence of 50mg daily at the methadone clinic at [facility]. Patient currently see's short story writer in the methadone clinic and is prescribed vistaril 25mg BID due to his mild anxiety. At present patient reports stable mood but is experiencing difficulty sleeping. Physical/Sexual Abuse/Trauma History: denies. Mental Status Exam - Mental Status Exam Alert and Oriented to: Time, Place, Person Cognitive Function: Good Patient Appearance: Well Groomed Mood: Hopeful Affect: Appropriate Patient Behavior: Appropriate, Cooperative Speech Pattern: Appropriate Voice Loudness: Normal Thought Process: Goal Oriented Hallucinations: Denies Suicidal Ideation: Denies Homicidal Ideation: Denies Insight/Judgement: Poor Sleep: Poorly Appetite: Fair Muscle strength/Tone: Normal Gait/Station: Normal Psychiatric Findings - Problem List ([place] 1, 2,3) (1) Substance-induced sleep disorder Current Visit: Yes Status: Acute (2) Alcohol-induced anxiety disorder Current Visit: Yes Status: Acute (3) Alcohol-induced sleep disorder Current Visit: Yes Status: Acute (4) Alcohol dependence Current Visit: Yes Status: Chronic Comment: discussed harm reducation, does not think is drinking is a problem at this time; does not want to rehab at this time. (5) Methadone maintenance therapy patient Current Visit: Yes Status: Chronic - Initial Treatment Plan Initial Treatment Plan: Psychoeducation provided. Detoxification in progress. Will continue Vistaril 25mg q6h. Will order Belsomra 15mg HS PRN. Benefits and side effects discussed. Verbal consent given.
[2020-03-30] MEDS: NICOTINE 14 MG/24 HOURS TOPICAL PATCH TD SCH (09:40)
[2020-03-30] MEDS: PRENATAL VITAMINS W/ FOLIC ACID TABLET (FP) PO SCH (09:41)
[2020-03-30] MEDS: THIAMINE HCL 100 MG TABLET (FP) PO SCH (21:48)
[2020-03-30] MEDS: SUVOREXANT 15 MG TABLET PO PRN (22:01)
[2020-03-31] MEDS ORDERED: METHADONE HCL 40 MG DISPERSABLE TABLET ONE (05:33)
[2020-03-31] MEDS ORDERED: METHADONE HCL 10 MG TABLET ONE (05:34)
[2020-03-31] MEDS: METHADONE 40 MG, METHADONE 10 MG PO SCH (06:10)
[2020-03-31] MEDS: hydrOXYzine PAMOATE 25 MG CAPSULE (FP) PO PRN ×2 (06:11→21:09)
[2020-03-31] MEDS: PRENATAL VITAMINS W/ FOLIC ACID TABLET (FP) PO SCH (10:02)
[2020-03-31] MEDS: NICOTINE 14 MG/24 HOURS TOPICAL PATCH TD SCH (10:02)
[2020-03-31] MEDS: THIAMINE HCL 100 MG TABLET (FP) PO SCH (21:09)
[2020-03-31] MEDS: SUVOREXANT 15 MG TABLET PO PRN (21:09)
[2020-04-01] MEDS ORDERED: METHADONE HCL 10 MG TABLET ONE (04:55)
[2020-04-01] MEDS ORDERED: METHADONE HCL 40 MG DISPERSABLE TABLET ONE (04:55)
[2020-04-01] MEDS: METHADONE 40 MG, METHADONE 10 MG PO SCH (06:35)
[2020-04-01] MEDS: hydrOXYzine PAMOATE 25 MG CAPSULE (FP) PO PRN ×2 (06:35→14:25)
[2020-04-01] MEDS: PRENATAL VITAMINS W/ FOLIC ACID TABLET (FP) PO SCH (09:31)
[2020-04-01] MEDS: NICOTINE 14 MG/24 HOURS TOPICAL PATCH TD SCH (09:31)
[2020-04-01] MEDS: SUVOREXANT 15 MG TABLET PO PRN (21:32)
[2020-04-01] MEDS: THIAMINE HCL 100 MG TABLET (FP) PO SCH (21:33)
[2020-04-02] MEDS ORDERED: METHADONE HCL 40 MG DISPERSABLE TABLET ONE (03:22)
[2020-04-02] MEDS ORDERED: METHADONE HCL 10 MG TABLET ONE (03:23)
[2020-04-02] MEDS: METHADONE 40 MG, METHADONE 10 MG PO SCH (06:03)
[2020-04-02] MEDS: PRENATAL VITAMINS W/ FOLIC ACID TABLET (FP) PO SCH (09:57)
[2020-04-02] MEDS: NICOTINE 14 MG/24 HOURS TOPICAL PATCH TD SCH (09:58)
--- NOTE | 2020-04-02 15:54 | PN ---
S Progress Note Note: Pt transfered from [facility] this afternoon to [address] [place] [address]. Vital Signs - 24 hr 04/01/20 04/02/20 04/02/20 20:23 06:01 14:26 Temperature 97.7 F 97.7 F Pulse Rate 56 L Respiratory 18 Rate Blood Pressure 125/68 O2 Sat by Pulse 98 99 97 Oximetry (%) Alert o x 3 nad oob ambulating with steady gait. Cont rehab.
[2020-04-02] MEDS: THIAMINE HCL 100 MG TABLET (FP) PO SCH (21:44)
[2020-04-02] MEDS: SUVOREXANT 15 MG TABLET PO PRN ×2 (21:44→21:45)
[2020-04-02] MEDS: hydrOXYzine PAMOATE 25 MG CAPSULE (FP) PO PRN (21:44)
[2020-04-03] MEDS ORDERED: METHADONE HCL 10 MG TABLET ONE (03:24)
[2020-04-03] MEDS ORDERED: METHADONE HCL 40 MG DISPERSABLE TABLET ONE (03:25)
[2020-04-03] MEDS: hydrOXYzine PAMOATE 25 MG CAPSULE (FP) PO PRN ×3 (06:39→14:21)
[2020-04-03] MEDS: METHADONE 40 MG, METHADONE 10 MG PO SCH (06:39)
[2020-04-03] MEDS: PRENATAL VITAMINS W/ FOLIC ACID TABLET (FP) PO SCH (10:53)
[2020-04-03] MEDS: NICOTINE 14 MG/24 HOURS TOPICAL PATCH TD SCH (10:54)
[2020-04-03] MEDS: hydrOXYzine PAMOATE 50 MG CAPSULE (FP) PO PRN (21:28)
[2020-04-03] MEDS: SUVOREXANT 15 MG TABLET PO PRN (21:28)
[2020-04-03] MEDS: THIAMINE HCL 100 MG TABLET (FP) PO SCH (21:28)
[2020-04-04] MEDS ORDERED: METHADONE HCL 10 MG TABLET ONE (03:31)
[2020-04-04] MEDS ORDERED: METHADONE HCL 40 MG DISPERSABLE TABLET ONE (03:32)
[2020-04-04] MEDS: METHADONE 40 MG, METHADONE 10 MG PO SCH (06:56)
[2020-04-04] MEDS: hydrOXYzine PAMOATE 50 MG CAPSULE (FP) PO PRN ×3 (06:57→21:11)
[2020-04-04] MEDS: PRENATAL VITAMINS W/ FOLIC ACID TABLET (FP) PO SCH (10:10)
[2020-04-04] MEDS: NICOTINE 14 MG/24 HOURS TOPICAL PATCH TD SCH (10:10)
[2020-04-04] MEDS: THIAMINE HCL 100 MG TABLET (FP) PO SCH (21:11)
[2020-04-04] MEDS: SUVOREXANT 15 MG TABLET PO PRN (21:11)
[2020-04-05] MEDS ORDERED: METHADONE HCL 10 MG TABLET ONE (06:29)
[2020-04-05] MEDS: hydrOXYzine PAMOATE 50 MG CAPSULE (FP) PO PRN ×3 (06:30→21:27)
[2020-04-05] MEDS: METHADONE 40 MG, METHADONE 10 MG PO SCH (06:30)
[2020-04-05] MEDS ORDERED: METHADONE HCL 40 MG DISPERSABLE TABLET ONE (06:30)
[2020-04-05] MEDS: PRENATAL VITAMINS W/ FOLIC ACID TABLET (FP) PO SCH (09:28)
[2020-04-05] MEDS: NICOTINE 14 MG/24 HOURS TOPICAL PATCH TD SCH (09:29)
--- NOTE | 2020-04-05 10:09 | PN ---
[facility] Progress Note Note: Psychiatric nurse practitioer note: Belsomra 15mg HS renewed X3 days. Verbal consent given.
[2020-04-05] MEDS: THIAMINE HCL 100 MG TABLET (FP) PO SCH (21:26)
[2020-04-05] MEDS: SUVOREXANT 15 MG TABLET PO PRN (21:27)
[2020-04-06] MEDS ORDERED: METHADONE HCL 40 MG DISPERSABLE TABLET ONE (03:27)
[2020-04-06] MEDS ORDERED: METHADONE HCL 10 MG TABLET ONE (03:27)
[2020-04-06] MEDS: METHADONE 40 MG, METHADONE 10 MG PO SCH (06:11)
[2020-04-06] MEDS: hydrOXYzine PAMOATE 50 MG CAPSULE (FP) PO PRN ×3 (06:11→21:37)
[2020-04-06] MEDS: PRENATAL VITAMINS W/ FOLIC ACID TABLET (FP) PO SCH (09:33)
[2020-04-06] MEDS: NICOTINE 14 MG/24 HOURS TOPICAL PATCH TD SCH (09:33)
[2020-04-06] MEDS: SUVOREXANT 15 MG TABLET PO PRN (21:37)
[2020-04-06] MEDS: THIAMINE HCL 100 MG TABLET (FP) PO SCH (21:37)
[2020-04-07] MEDS ORDERED: METHADONE HCL 10 MG TABLET ONE (06:00)
[2020-04-07] MEDS ORDERED: METHADONE HCL 40 MG DISPERSABLE TABLET ONE (06:00)
[2020-04-07] MEDS: METHADONE 40 MG, METHADONE 10 MG PO SCH (06:30)
[2020-04-07] MEDS ORDERED: MASKS NR ONE (06:32)
[2020-04-07] MEDS: hydrOXYzine PAMOATE 50 MG CAPSULE (FP) PO PRN ×3 (06:33→21:47)
[2020-04-07] MEDS: PRENATAL VITAMINS W/ FOLIC ACID TABLET (FP) PO SCH (10:13)
[2020-04-07] MEDS: NICOTINE 14 MG/24 HOURS TOPICAL PATCH TD SCH (10:14)
[2020-04-07] MEDS: THIAMINE HCL 100 MG TABLET (FP) PO SCH (21:44)
[2020-04-07] MEDS: SUVOREXANT 15 MG TABLET PO PRN (21:46)
[2020-04-08] MEDS ORDERED: METHADONE HCL 10 MG TABLET ONE (05:45)
[2020-04-08] MEDS ORDERED: METHADONE HCL 40 MG DISPERSABLE TABLET ONE (05:46)
[2020-04-08] MEDS: METHADONE 40 MG, METHADONE 10 MG PO SCH (06:12)
[2020-04-08] MEDS: hydrOXYzine PAMOATE 50 MG CAPSULE (FP) PO PRN ×3 (06:12→21:41)
[2020-04-08] MEDS: PRENATAL VITAMINS W/ FOLIC ACID TABLET (FP) PO SCH (09:34)
[2020-04-08] MEDS: NICOTINE 14 MG/24 HOURS TOPICAL PATCH TD SCH (09:34)
[2020-04-08] MEDS: SUVOREXANT 15 MG TABLET PO PRN (21:41)
[2020-04-08] MEDS: THIAMINE HCL 100 MG TABLET (FP) PO SCH (21:46)
[2020-04-08] MEDS ORDERED: SUVOREXANT 15 MG TABLET PO PRN (22:00)
[2020-04-09] MEDS ORDERED: METHADONE HCL 10 MG TABLET ONE (03:26)
[2020-04-09] MEDS ORDERED: METHADONE HCL 40 MG DISPERSABLE TABLET ONE (03:26)
[2020-04-09 06:40] VITALS: BP 119/72; PULSE 70; TEMP 97.7
[2020-04-09] MEDS: METHADONE 40 MG, METHADONE 10 MG PO SCH (06:43)
[2020-04-09] MEDS: hydrOXYzine PAMOATE 50 MG CAPSULE (FP) PO PRN ×4 (06:44→21:18)
[2020-04-09] MEDS: PRENATAL VITAMINS W/ FOLIC ACID TABLET (FP) PO SCH (10:07)
[2020-04-09] MEDS: NICOTINE 14 MG/24 HOURS TOPICAL PATCH TD SCH (10:07)
--- NOTE | 2020-04-09 11:07 | PN ---
[facility] Progress Note Note: Patient was started on Belsomra 15 mg/hs prn for insomnia yesterday after requesting increase in medication dosage
--- NOTE | 2020-04-09 12:11 | PN ---
S Progress Note Note: Pt c/o eye strain/pain when trying to focus on a target while sitting in group especially left eye. Also reports some lateral headache sometimes on the affected side. Denies nausea/vomiting, dryness or watery/teary eyes. Reports it's been ongoing on/off for more than 2 months. Pt states "I think i need glasses. Vital Signs - 24 hr 04/08/20 04/08/20 04/09/20 15:17 20:29 06:37 Temperature 97.7 F Pulse Rate 70 Respiratory 16 Rate Blood Pressure 119/72 O2 Sat by Pulse 96 96 96 Oximetry (%) Alert o x 3 nad, oob ambulating with steady gait Head:Normocephalic, atruamatic eyes: Kitty,eomi,sclera-anicteric, no redness or swelling, no drainage/discha rge. A:Eye strain/pain P:D/w pt the need to follow up with an In Home Sales Consultant/Electric Meter Installer after rehab. Pt has primary care with [facility] and will follow up after discharge.
[2020-04-09] MEDS: THIAMINE HCL 100 MG TABLET (FP) PO SCH (21:18)
--- NOTE | 2020-04-10 02:58 | DS ---
[facility] Detox Discharge Summary Admission Date: 03/29/20 Discharge Date: 04/10/20 - History Additional Comments: Patient is leaving against medical advice. He reports that he is having a problem with his roommate. Patient was offered to be relocated to another room or another floor but he refused and insisted on leaving now at 2.58am. Risks and consequences of his actions including safety issues reinforced. Patient has been in Rehab. since 03/29/2020 and was encouraged to wait and be formally discharged early in the morning, he refused and walked out. Patient encouraged to follow up with his PCP for his medical needs and with recruiting scheduler for evaluation of his eyes. Patient is to follow up with his Methadone clinic to resume therapy. Pertinent Past History: Opioid dependence on agonist therapy Alcohol dependence Alcohol induced sleep disorder Alcohol induced anxiety disorder Insomnia Cannabis dependence Anxiety and depression Hep C Methadone maintenance therapy patient - Physical Exam Results Vital Signs: Vital Signs Temperature 97.7 F 04/09/20 06:37 Pulse Rate 70 04/09/20 06:37 Respiratory Rate 16 04/09/20 06:37 Blood Pressure 119/72 04/09/20 06:37 O2 Sat by Pulse Oximetry (%) 97 04/09/20 20:19 Pertinent Admission Physical Exam Findings: Alcohol withdrawal symptoms - Medication Discharge Medications: Ambulatory Orders Methadone HCl 50 mg PO DAILY 03/24/20 hydrOXYzine PAMOATE [Vistaril -] 25 mg PO BID 03/24/20 - Diagnosis (1) Alcohol dependence with uncomplicated withdrawal Status: Chronic (2) Alcohol-induced anxiety disorder Status: Chronic (3) Alcohol-induced sleep disorder Status: Chronic (4) Insomnia Status: Chronic (5) Cannabis abuse Status: Chronic (6) Hepatitis C Status: Chronic (7) Methadone maintenance therapy patient Status: Chronic (8) Nicotine dependence Status: Chronic Qualifiers: Nicotine product type: cigarettes Substance use status: uncomplicated Qualified Code(s): F17.210 - Nicotine dependence, cigarettes, uncomplicated - AMA Did Patient Leave Against Medical Advice: Yes
== END 2020-04-10 03:05 | disposition left against medical advice (07) | DRG 770 ==
LOC: YASAS 15:57 → Y3W 15:58 → Y5N 04-02 14:43
PROVIDERS: ADMIT Allergy & Immunology; ATTEND Allergy & Immunology
PROC: HZ42ZZZ Group Counseling for Substance Abuse Treatment, Cognitive-Behavioral (ICD-10-PCS; principal; 2020-03-29)
DX: F10.20 Alcohol dependence, uncomplicated (principal); F11.20 Opioid dependence, uncomplicated; F12.20 Cannabis dependence, uncomplicated; F17.210 Nicotine dependence, cigarettes, uncomplicated; F10.282 Alcohol dependence with alcohol-induced sleep disorder; F10.24 Alcohol dependence with alcohol-induced mood disorder; F19.282 Other psychoactive substance dependence with psychoactive substance-induced sleep disorder; F41.9 Anxiety disorder, unspecified; F32.9 Major depressive disorder, single episode, unspecified; G47.00 Insomnia, unspecified; B18.2 Chronic viral hepatitis C; H57.13 Ocular pain, bilateral

== ENCOUNTER 2020-07-09 10:01 | Inpatient (IN) | payer OTHER ==
[2020-07-09 10:59] VITALS: BMI 21.5
[2020-07-09] MEDS ORDERED: ACETAMINOPHEN 325 MG TABLET (FP) PO PRN ×2 (11:16)
[2020-07-09] MEDS ORDERED: MAGNESIUM CITRATE 300 ML BOTTLE PO PRN (11:16)
[2020-07-09] MEDS ORDERED: MAG HYDROX/AL HYDROX/SIMETH 30 ML UNIT-DOSE CUP PO PRN (11:16)
[2020-07-09] MEDS ORDERED: MENTHOL/PHENOL 1 EACH UD MM PRN (11:16)
[2020-07-09] MEDS ORDERED: MAGNESIUM HYDROX 2400MG/30ML ORAL SUSPENSION 30 ML CUP PO PRN (11:16)
[2020-07-09] MEDS ORDERED: NICOTINE POLACRILEX 2 MG GUM BUC PRN (11:16)
[2020-07-09] MEDS ORDERED: BISMUTH SUBSALICYLATE 262 MG/15 ML BTL PO PRN (11:16)
[2020-07-09] MEDS: METHOCARBAMOL 500 MG TABLET PO PRN ×2 (12:36→18:34)
[2020-07-09] MEDS: chlordiazePOXIDE HCL 25 MG CAPSULE PO PRN (12:36)
[2020-07-09] MEDS: ONDANSETRON *ODT* 4 MG TABLET SL PRN ×2 (12:36→22:13)
[2020-07-09] MEDS: hydrOXYzine PAMOATE 25 MG CAPSULE (FP) PO SCH ×3 (13:42→22:14)
[2020-07-09] MEDS: PATIENT'S OWN MEDICATION (NON-FORMULARY) (Sofosbuvir/Velpatasvir [Epclusa 400 Mg-100 Mg Ta PO SCH (13:43)
[2020-07-09 14:49] LABS: HEMATOCRIT 41.3 % (35.4-49); MCH 30.8 pg (25.7-33.7); MEAN CELL VOLUME 90.8 fl (80-96); MEAN PLT VOLUME 8.8 fl (7.5-11.1); PLATELET COUNT 215 K/MM3 (134-434); RBC 4.55 M/mm3 (4.00-5.60); RDW 13.5 % (11.9-15.9)
[2020-07-09 14:51] LABS: POTASSIUM 4.5 mmol/L (3.5-5.1)
[2020-07-09 14:56] LABS: CALCIUM 9.2 mg/dL (8.5-10.1)
[2020-07-09 14:57] LABS: ALBUMIN 4.5 g/dl (3.4-5.0); BLOOD UREA NITROGEN 8.3 mg/dL (7-18)
[2020-07-09 15:01] LABS: BILIRUBIN,TOTAL 1.1 mg/dL (0.2-1); TOT PROT 8.5 g/dl (6.4-8.2)
[2020-07-09] MEDS: chlordiazePOXIDE HCL 25 MG CAPSULE PO SCH ×2 (18:01→22:13)
[2020-07-09] MEDS: THIAMINE HCL 100 MG TABLET (FP) PO SCH (22:13)
[2020-07-09] MEDS: traZODone HCL 50 MG TABLET (FP) PO SCH (22:14)
[2020-07-09] MEDS: MELATONIN 5 MG TABLETS PO SCH (22:14)
[2020-07-10] MEDS: chlordiazePOXIDE HCL 25 MG CAPSULE PO SCH ×4 (05:38→22:11)
[2020-07-10] MEDS: hydrOXYzine PAMOATE 25 MG CAPSULE (FP) PO SCH ×5 (05:38→22:12)
[2020-07-10] MEDS: NICOTINE 7 MG/24 HOURS TOPICAL PATCH TD SCH (10:10)
[2020-07-10] MEDS: METHADONE HCL 40 MG DISPERSABLE TABLET PO SCH (10:10)
[2020-07-10] MEDS: PRENATAL VITAMINS W/ FOLIC ACID TABLET (FP) PO SCH (10:11)
[2020-07-10] MEDS: PATIENT'S OWN MEDICATION (NON-FORMULARY) (Sofosbuvir/Velpatasvir [Epclusa 400 Mg-100 Mg Ta PO SCH (10:14)
[2020-07-10] MEDS: ONDANSETRON *ODT* 4 MG TABLET SL PRN ×2 (10:16→18:25)
[2020-07-10] MEDS: METHOCARBAMOL 500 MG TABLET PO PRN (18:06)
[2020-07-10] MEDS: traZODone HCL 50 MG TABLET (FP) PO SCH (22:11)
[2020-07-10] MEDS: MELATONIN 5 MG TABLETS PO SCH (22:12)
[2020-07-10] MEDS: THIAMINE HCL 100 MG TABLET (FP) PO SCH (22:12)
[2020-07-11] MEDS: chlordiazePOXIDE HCL 25 MG CAPSULE PO SCH ×4 (06:15→22:31)
[2020-07-11] MEDS: hydrOXYzine PAMOATE 25 MG CAPSULE (FP) PO SCH ×5 (06:15→22:34)
[2020-07-11] MEDS: METHOCARBAMOL 500 MG TABLET PO PRN ×2 (06:16→22:34)
[2020-07-11] MEDS: ONDANSETRON *ODT* 4 MG TABLET SL PRN ×2 (06:16→22:36)
[2020-07-11] MEDS: PATIENT'S OWN MEDICATION (NON-FORMULARY) (Sofosbuvir/Velpatasvir [Epclusa 400 Mg-100 Mg Ta PO SCH (10:06)
[2020-07-11] MEDS: PRENATAL VITAMINS W/ FOLIC ACID TABLET (FP) PO SCH (10:06)
[2020-07-11] MEDS: METHADONE HCL 40 MG DISPERSABLE TABLET PO SCH (10:07)
[2020-07-11] MEDS: NICOTINE 7 MG/24 HOURS TOPICAL PATCH TD SCH (10:07)
[2020-07-11] MEDS: IBUPROFEN 400 MG TABLET (FP) PO PRN (17:55)
[2020-07-11] MEDS: chlordiazePOXIDE HCL 25 MG CAPSULE PO PRN (20:13)
[2020-07-11] MEDS: THIAMINE HCL 100 MG TABLET (FP) PO SCH (22:31)
[2020-07-11] MEDS: MELATONIN 5 MG TABLETS PO SCH (22:32)
[2020-07-11] MEDS: traZODone HCL 50 MG TABLET (FP) PO SCH (22:32)
[2020-07-12] MEDS: hydrOXYzine PAMOATE 25 MG CAPSULE (FP) PO SCH ×5 (05:58→22:22)
[2020-07-12] MEDS: chlordiazePOXIDE HCL 10 MG CAPSULE PO SCH ×4 (05:58→22:21)
[2020-07-12] MEDS: ONDANSETRON *ODT* 4 MG TABLET SL PRN ×2 (06:00→17:44)
[2020-07-12] MEDS: METHADONE HCL 40 MG DISPERSABLE TABLET PO SCH (10:12)
[2020-07-12] MEDS: PATIENT'S OWN MEDICATION (NON-FORMULARY) (Sofosbuvir/Velpatasvir [Epclusa 400 Mg-100 Mg Ta PO SCH (10:13)
[2020-07-12] MEDS: PRENATAL VITAMINS W/ FOLIC ACID TABLET (FP) PO SCH (10:13)
[2020-07-12] MEDS: NICOTINE 7 MG/24 HOURS TOPICAL PATCH TD SCH (10:13)
[2020-07-12] MEDS: METHOCARBAMOL 500 MG TABLET PO PRN ×2 (10:14→22:24)
[2020-07-12] MEDS ORDERED: CEPHALEXIN MONOHYDRATE 500 MG CAPSULE (UD) PO ONE (12:36)
[2020-07-12] MEDS: chlordiazePOXIDE HCL 10 MG CAPSULE PO PRN ×2 (13:32→19:55)
[2020-07-12] MEDS: BACITRACIN 0.9 GM PACKET TP SCH ×2 (13:32→22:21)
[2020-07-12] MEDS: CEPHALEXIN MONOHYDRATE 500 MG CAPSULE (UD) PO SCH (18:04)
[2020-07-12] MEDS: THIAMINE HCL 100 MG TABLET (FP) PO SCH (22:21)
[2020-07-12] MEDS: MELATONIN 5 MG TABLETS PO SCH (22:21)
[2020-07-12] MEDS: traZODone HCL 50 MG TABLET (FP) PO SCH (22:21)
[2020-07-13] MEDS ORDERED: chlordiazePOXIDE HCL 10 MG CAPSULE PO SCH (05:00)
[2020-07-13] MEDS: CEPHALEXIN MONOHYDRATE 500 MG CAPSULE (UD) PO SCH ×3 (06:01→14:05)
[2020-07-13] MEDS: hydrOXYzine PAMOATE 25 MG CAPSULE (FP) PO SCH ×3 (06:01→14:03)
[2020-07-13] MEDS: BACITRACIN 0.9 GM PACKET TP SCH (10:27)
[2020-07-13] MEDS: METHADONE HCL 40 MG DISPERSABLE TABLET PO SCH (10:27)
[2020-07-13] MEDS: PRENATAL VITAMINS W/ FOLIC ACID TABLET (FP) PO SCH (10:27)
[2020-07-13] MEDS: NICOTINE 7 MG/24 HOURS TOPICAL PATCH TD SCH (10:28)
[2020-07-13] MEDS: ONDANSETRON *ODT* 4 MG TABLET SL PRN (10:30)
[2020-07-13] MEDS: PATIENT'S OWN MEDICATION (NON-FORMULARY) (Sofosbuvir/Velpatasvir [Epclusa 400 Mg-100 Mg Ta PO SCH (10:31)
[2020-07-13] MEDS: IBUPROFEN 400 MG TABLET (FP) PO PRN (10:33)
[2020-07-13] MEDS: METHOCARBAMOL 500 MG TABLET PO PRN (10:33)
[2020-07-13 13:12] VITALS: BP 102/68; PULSE 96; TEMP 96.9
[2020-07-14] MEDS ORDERED: chlordiazePOXIDE HCL 10 MG CAPSULE PO ONE (05:00)
== END 2020-07-13 14:07 | disposition other institution (70) | DRG 773 ==
LOC: YASAS 10:01 → Y3N 11:34
PROVIDERS: ADMIT Allergy & Immunology; ATTEND Allergy & Immunology
PROC: HZ2ZZZZ Detoxification Services for Substance Abuse Treatment (ICD-10-PCS; principal; 2020-07-09)
DX: F10.230 Alcohol dependence with withdrawal, uncomplicated (principal); F11.20 Opioid dependence, uncomplicated; F17.210 Nicotine dependence, cigarettes, uncomplicated; F19.24 Other psychoactive substance dependence with psychoactive substance-induced mood disorder; G47.00 Insomnia, unspecified; B18.2 Chronic viral hepatitis C
CPT/HCPCS: 36415; 80053; 85027; 86780; C9803; Q0162; U0003

== ENCOUNTER 2020-07-13 14:59 | Inpatient (IN) | payer OTHER ==
[2020-07-13] MEDS ORDERED: MAG HYDROX/AL HYDROX/SIMETH 30 ML UNIT-DOSE CUP PO PRN (16:31)
[2020-07-13] MEDS ORDERED: MAGNESIUM CITRATE 300 ML BOTTLE PO PRN (16:31)
[2020-07-13] MEDS ORDERED: IBUPROFEN 400 MG TABLET (FP) PO PRN (16:31)
[2020-07-13] MEDS ORDERED: MAGNESIUM HYDROX 2400MG/30ML ORAL SUSPENSION 30 ML CUP PO PRN (16:31)
[2020-07-13] MEDS ORDERED: P-EPHED 60MG/TRIPROLIDI 2.5MG TABLET PO PRN (16:31)
[2020-07-13] MEDS ORDERED: ACETAMINOPHEN 325 MG TABLET (FP) PO PRN (16:31)
[2020-07-13] MEDS ORDERED: NICOTINE POLACRILEX 2 MG GUM BUC PRN (16:31)
[2020-07-13] MEDS ORDERED: LOPERAMIDE HCL 2 MG CAPSULE PO PRN (16:31)
[2020-07-13] MEDS ORDERED: guaiFENesin 200 MG/10 ML 10 ML UNIT-DOSE CUPS PO PRN (16:31)
[2020-07-13] MEDS ORDERED: MENTHOL/PHENOL 1 EACH UD MM PRN (16:31)
[2020-07-13] MEDS: THIAMINE HCL 100 MG TABLET (FP) PO SCH (21:16)
[2020-07-13] MEDS: MELATONIN 5 MG TABLETS PO PRN (21:16)
[2020-07-13] MEDS: traZODone HCL 50 MG TABLET (FP) PO SCH (21:17)
[2020-07-13] MEDS ORDERED: MELATONIN 5 MG TABLETS PO SCH (22:00)
[2020-07-14] MEDS: METHADONE HCL 40 MG DISPERSABLE TABLET PO SCH (07:00)
[2020-07-14] MEDS: PRENATAL VITAMINS W/ FOLIC ACID TABLET (FP) PO SCH (10:24)
[2020-07-14] MEDS: NICOTINE 7 MG/24 HOURS TOPICAL PATCH TD SCH (10:24)
[2020-07-14] MEDS: PATIENT'S OWN MEDICATION (NON-FORMULARY) (Sofosbuvir/Velpatasvir [Epclusa 400 Mg-100 Mg Ta PO SCH (11:58)
[2020-07-14] MEDS: THIAMINE HCL 100 MG TABLET (FP) PO SCH (21:39)
[2020-07-14] MEDS: MELATONIN 5 MG TABLETS PO PRN (21:39)
[2020-07-14] MEDS: traZODone HCL 50 MG TABLET (FP) PO SCH (21:39)
[2020-07-15] MEDS: METHADONE HCL 40 MG DISPERSABLE TABLET PO SCH (06:39)
[2020-07-15] MEDS: PATIENT'S OWN MEDICATION (NON-FORMULARY) (Sofosbuvir/Velpatasvir [Epclusa 400 Mg-100 Mg Ta PO SCH (10:14)
[2020-07-15] MEDS: NICOTINE 7 MG/24 HOURS TOPICAL PATCH TD SCH (10:15)
[2020-07-15] MEDS: PRENATAL VITAMINS W/ FOLIC ACID TABLET (FP) PO SCH (10:15)
[2020-07-15] MEDS: hydrOXYzine PAMOATE 50 MG CAPSULE (FP) PO PRN ×2 (13:14→21:26)
[2020-07-15] MEDS: MELATONIN 5 MG TABLETS PO PRN (21:25)
[2020-07-15] MEDS: SUVOREXANT 10 MG TABLET PO PRN (21:25)
[2020-07-15] MEDS: THIAMINE HCL 100 MG TABLET (FP) PO SCH (21:25)
[2020-07-16] MEDS: METHADONE HCL 40 MG DISPERSABLE TABLET PO SCH (07:40)
[2020-07-16] MEDS ORDERED: PT OWN MED DRAWER 7, Y5N ONE (09:07)
[2020-07-16] MEDS: PRENATAL VITAMINS W/ FOLIC ACID TABLET (FP) PO SCH (10:09)
[2020-07-16] MEDS: PATIENT'S OWN MEDICATION (NON-FORMULARY) (Sofosbuvir/Velpatasvir [Epclusa 400 Mg-100 Mg Ta PO SCH (10:09)
[2020-07-16] MEDS: NICOTINE 7 MG/24 HOURS TOPICAL PATCH TD SCH (10:09)
[2020-07-16] MEDS ORDERED: METHADONE HCL 40 MG DISPERSABLE TABLET PO ONE (11:51)
[2020-07-16] MEDS: METHOCARBAMOL 500 MG TABLET PO SCH ×2 (14:01→21:34)
[2020-07-16] MEDS: CEPHALEXIN MONOHYDRATE 500 MG CAPSULE (UD) PO SCH ×2 (17:56→23:46)
[2020-07-16] MEDS: ONDANSETRON *ODT* 4 MG TABLET SL PRN (17:56)
[2020-07-16] MEDS ORDERED: MASKS NR ONE (17:57)
[2020-07-16] MEDS: SUVOREXANT 10 MG TABLET PO PRN (21:33)
[2020-07-16] MEDS: THIAMINE HCL 100 MG TABLET (FP) PO SCH (21:33)
[2020-07-16] MEDS: MELATONIN 5 MG TABLETS PO PRN (21:34)
[2020-07-16] MEDS: hydrOXYzine PAMOATE 50 MG CAPSULE (FP) PO PRN (21:35)
[2020-07-17] MEDS: METHADONE HCL 40 MG DISPERSABLE TABLET PO SCH (07:33)
[2020-07-17] MEDS: METHOCARBAMOL 500 MG TABLET PO SCH ×3 (07:34→21:37)
[2020-07-17] MEDS: CEPHALEXIN MONOHYDRATE 500 MG CAPSULE (UD) PO SCH ×4 (07:34→23:27)
[2020-07-17] MEDS ORDERED: PT OWN MED DRAWER 7, Y5N ONE ×2 (09:02→10:35)
[2020-07-17] MEDS: NICOTINE 7 MG/24 HOURS TOPICAL PATCH TD SCH (10:32)
[2020-07-17] MEDS: PRENATAL VITAMINS W/ FOLIC ACID TABLET (FP) PO SCH (10:32)
[2020-07-17] MEDS: PATIENT'S OWN MEDICATION (NON-FORMULARY) (Sofosbuvir/Velpatasvir [Epclusa 400 Mg-100 Mg Ta PO SCH (10:32)
[2020-07-17] MEDS: hydrOXYzine PAMOATE 50 MG CAPSULE (FP) PO PRN ×2 (10:33→13:57)
[2020-07-17] MEDS: ONDANSETRON *ODT* 4 MG TABLET SL PRN (10:33)
[2020-07-17] MEDS: THIAMINE HCL 100 MG TABLET (FP) PO SCH (21:37)
[2020-07-17] MEDS: MELATONIN 5 MG TABLETS PO PRN (21:38)
[2020-07-17] MEDS: SUVOREXANT 10 MG TABLET PO PRN (21:39)
[2020-07-18] MEDS: CEPHALEXIN MONOHYDRATE 500 MG CAPSULE (UD) PO SCH ×4 (06:17→23:06)
[2020-07-18] MEDS: METHADONE HCL 40 MG DISPERSABLE TABLET PO SCH (06:17)
[2020-07-18] MEDS: METHOCARBAMOL 500 MG TABLET PO SCH ×3 (06:17→21:18)
[2020-07-18] MEDS: hydrOXYzine PAMOATE 50 MG CAPSULE (FP) PO PRN ×3 (06:18→17:39)
[2020-07-18] MEDS ORDERED: PT OWN MED DRAWER 7, Y5N ONE (08:49)
[2020-07-18] MEDS: PATIENT'S OWN MEDICATION (NON-FORMULARY) (Sofosbuvir/Velpatasvir [Epclusa 400 Mg-100 Mg Ta PO SCH (10:43)
[2020-07-18] MEDS: NICOTINE 7 MG/24 HOURS TOPICAL PATCH TD SCH (10:43)
[2020-07-18] MEDS: PRENATAL VITAMINS W/ FOLIC ACID TABLET (FP) PO SCH (10:44)
[2020-07-18] MEDS: ONDANSETRON *ODT* 4 MG TABLET SL PRN (14:13)
[2020-07-18] MEDS: MELATONIN 5 MG TABLETS PO PRN (21:18)
[2020-07-18] MEDS: THIAMINE HCL 100 MG TABLET (FP) PO SCH (21:18)
[2020-07-18] MEDS ORDERED: SUVOREXANT 10 MG TABLET PO PRN (22:00)
[2020-07-19] MEDS: hydrOXYzine PAMOATE 50 MG CAPSULE (FP) PO PRN (06:37)
[2020-07-19] MEDS: METHADONE HCL 40 MG DISPERSABLE TABLET PO SCH (06:37)
[2020-07-19] MEDS: CEPHALEXIN MONOHYDRATE 500 MG CAPSULE (UD) PO SCH ×2 (06:37→11:31)
[2020-07-19] MEDS: METHOCARBAMOL 500 MG TABLET PO SCH (06:37)
[2020-07-19 06:52] VITALS: BP 127/74; PULSE 78; TEMP 97.5
[2020-07-19] MEDS: PRENATAL VITAMINS W/ FOLIC ACID TABLET (FP) PO SCH (09:35)
[2020-07-19] MEDS: NICOTINE 7 MG/24 HOURS TOPICAL PATCH TD SCH (09:35)
[2020-07-19] MEDS: PATIENT'S OWN MEDICATION (NON-FORMULARY) (Sofosbuvir/Velpatasvir [Epclusa 400 Mg-100 Mg Ta PO SCH (09:36)
== END 2020-07-19 11:38 | disposition home or self-care (01) | DRG 772 ==
LOC: YASAS 14:59 → Y3W 15:02
PROVIDERS: ADMIT Allergy & Immunology; ATTEND Allergy & Immunology
PROC: HZ42ZZZ Group Counseling for Substance Abuse Treatment, Cognitive-Behavioral (ICD-10-PCS; principal; 2020-07-13)
DX: F10.20 Alcohol dependence, uncomplicated (principal); F11.20 Opioid dependence, uncomplicated; F12.20 Cannabis dependence, uncomplicated; F17.210 Nicotine dependence, cigarettes, uncomplicated; L02.31 Cutaneous abscess of buttock; B18.2 Chronic viral hepatitis C
CPT/HCPCS: Q0162

== ENCOUNTER 2020-07-26 10:02 | Inpatient (IN) | payer OTHER ==
[2020-07-26 11:26] VITALS: BMI 30.1
[2020-07-26] MEDS ORDERED: MENTHOL/PHENOL 1 EACH UD MM PRN (12:52)
[2020-07-26] MEDS ORDERED: ACETAMINOPHEN 325 MG TABLET (FP) PO PRN ×2 (12:52)
[2020-07-26] MEDS ORDERED: MAGNESIUM HYDROX 2400MG/30ML ORAL SUSPENSION 30 ML CUP PO PRN (12:52)
[2020-07-26] MEDS ORDERED: NICOTINE POLACRILEX 2 MG GUM BUC PRN (12:52)
[2020-07-26] MEDS ORDERED: chlordiazePOXIDE HCL 25 MG CAPSULE PO PRN (12:52)
[2020-07-26] MEDS ORDERED: MAGNESIUM CITRATE 300 ML BOTTLE PO PRN (12:52)
[2020-07-26] MEDS ORDERED: IBUPROFEN 400 MG TABLET (FP) PO PRN (12:52)
[2020-07-26] MEDS ORDERED: ONDANSETRON *ODT* 4 MG TABLET SL PRN (12:52)
[2020-07-26] MEDS ORDERED: MAG HYDROX/AL HYDROX/SIMETH 30 ML UNIT-DOSE CUP PO PRN (12:52)
[2020-07-26] MEDS ORDERED: BISMUTH SUBSALICYLATE 524 MG/30 ML UD PO PRN (12:52)
[2020-07-26] MEDS ORDERED: NICOTINE 14 MG/24 HOURS TOPICAL PATCH TD SCH (13:00)
[2020-07-26] MEDS ORDERED: METHADONE HCL 40 MG DISPERSABLE TABLET PO SCH (13:30)
[2020-07-26] MEDS ORDERED: hydrOXYzine PAMOATE 25 MG CAPSULE (FP) PO SCH ×2 (14:00→14:30)
[2020-07-26] MEDS ORDERED: METHADONE HCL 40 MG DISPERSABLE TABLET PO ONE (14:15)
[2020-07-26] MEDS: NICOTINE 7 MG/24 HOURS TOPICAL PATCH TD SCH (14:30)
[2020-07-26 15:00] LABS: HEMATOCRIT 38.6 % (35.4-49); HEMOGLOBIN 12.9 GM/dL (11.7-16.9); MCH 30.5 pg (25.7-33.7); MCHC 33.6 g/dl (32.0-35.9); MEAN PLT VOLUME 8.5 fl (7.5-11.1); PLATELET COUNT 222 K/MM3 (134-434); RBC 4.24 M/mm3 (4.00-5.60); RDW 13.7 % (11.9-15.9); WHITE BLOOD COUNT 6.3 K/mm3 (4.0-10.0)
[2020-07-26 15:01] LABS: POTASSIUM 4.2 mmol/L (3.5-5.1)
[2020-07-26 15:05] LABS: ALBUMIN 4.4 g/dl (3.4-5.0); BLOOD UREA NITROGEN 8.2 mg/dL (7-18); CALCIUM 9.2 mg/dL (8.5-10.1)
[2020-07-26 15:08] LABS: CREATININE 0.9 mg/dL (0.55-1.3)
[2020-07-26 15:10] LABS: BILIRUBIN,TOTAL 0.9 mg/dL (0.2-1); TOT PROT 8.3 g/dl (6.4-8.2)
[2020-07-26] MEDS: chlordiazePOXIDE HCL 25 MG CAPSULE PO SCH ×2 (17:29→22:34)
[2020-07-26] MEDS: hydrOXYzine PAMOATE 50 MG CAPSULE (FP) PO PRN (17:31)
[2020-07-26] MEDS: THIAMINE HCL 100 MG TABLET (FP) PO SCH (22:34)
[2020-07-26] MEDS: MELATONIN 5 MG TABLETS PO SCH (22:37)
[2020-07-26] MEDS: SUVOREXANT 10 MG TABLET PO PRN (22:37)
[2020-07-27] MEDS: METHADONE HCL 40 MG DISPERSABLE TABLET PO SCH (05:35)
[2020-07-27] MEDS: chlordiazePOXIDE HCL 25 MG CAPSULE PO SCH ×4 (05:35→22:19)
[2020-07-27] MEDS ORDERED: MASKS NR ONE (07:08)
[2020-07-27] MEDS: PRENATAL VITAMINS W/ FOLIC ACID TABLET (FP) PO SCH (10:28)
[2020-07-27] MEDS: hydrOXYzine PAMOATE 50 MG CAPSULE (FP) PO PRN ×2 (10:30→17:38)
[2020-07-27] MEDS: NICOTINE 7 MG/24 HOURS TOPICAL PATCH TD SCH (10:33)
[2020-07-27] MEDS: MELATONIN 5 MG TABLETS PO SCH (22:19)
[2020-07-27] MEDS: THIAMINE HCL 100 MG TABLET (FP) PO SCH (22:19)
[2020-07-27] MEDS: SUVOREXANT 10 MG TABLET PO PRN (22:21)
[2020-07-28] MEDS: chlordiazePOXIDE HCL 25 MG CAPSULE PO SCH ×5 (05:22→22:10)
[2020-07-28] MEDS: METHADONE HCL 40 MG DISPERSABLE TABLET PO SCH (05:22)
[2020-07-28] MEDS: hydrOXYzine PAMOATE 50 MG CAPSULE (FP) PO PRN (08:49)
[2020-07-28] MEDS: PRENATAL VITAMINS W/ FOLIC ACID TABLET (FP) PO SCH (10:10)
[2020-07-28] MEDS: NICOTINE 7 MG/24 HOURS TOPICAL PATCH TD SCH (10:10)
[2020-07-28] MEDS: METHOCARBAMOL 500 MG TABLET PO PRN ×2 (10:31→17:49)
[2020-07-28] MEDS: MELATONIN 5 MG TABLETS PO SCH (22:09)
[2020-07-28] MEDS: THIAMINE HCL 100 MG TABLET (FP) PO SCH (22:09)
[2020-07-28] MEDS: SUVOREXANT 10 MG TABLET PO PRN (22:10)
[2020-07-29] MEDS ORDERED: chlordiazePOXIDE HCL 10 MG CAPSULE PO PRN
[2020-07-29] MEDS: METHADONE HCL 40 MG DISPERSABLE TABLET PO SCH (05:24)
[2020-07-29] MEDS: chlordiazePOXIDE HCL 10 MG CAPSULE PO SCH ×4 (05:24→22:37)
[2020-07-29] MEDS: METHOCARBAMOL 500 MG TABLET PO PRN ×2 (10:46→20:03)
[2020-07-29] MEDS: PRENATAL VITAMINS W/ FOLIC ACID TABLET (FP) PO SCH (10:46)
[2020-07-29] MEDS: NICOTINE 7 MG/24 HOURS TOPICAL PATCH TD SCH (10:47)
[2020-07-29] MEDS: hydrOXYzine PAMOATE 50 MG CAPSULE (FP) PO PRN (17:48)
[2020-07-29] MEDS: MELATONIN 5 MG TABLETS PO SCH (22:36)
[2020-07-29] MEDS: THIAMINE HCL 100 MG TABLET (FP) PO SCH (22:36)
[2020-07-29] MEDS: SUVOREXANT 10 MG TABLET PO PRN (22:37)
[2020-07-30] MEDS: chlordiazePOXIDE HCL 10 MG CAPSULE PO SCH ×2 (05:47→17:49)
[2020-07-30] MEDS: METHADONE HCL 40 MG DISPERSABLE TABLET PO SCH (05:47)
[2020-07-30] MEDS: SULFAMETHOXAZOLE/TRIMETHOPRIM 800MG/160MG D.S. TABLET PO SCH ×2 (10:27→22:23)
[2020-07-30] MEDS: PRENATAL VITAMINS W/ FOLIC ACID TABLET (FP) PO SCH (10:28)
[2020-07-30] MEDS: hydrOXYzine PAMOATE 50 MG CAPSULE (FP) PO PRN ×2 (10:28→22:23)
[2020-07-30] MEDS: METHOCARBAMOL 500 MG TABLET PO PRN (10:28)
[2020-07-30] MEDS: NICOTINE 7 MG/24 HOURS TOPICAL PATCH TD SCH (10:48)
[2020-07-30] MEDS: SUVOREXANT 10 MG TABLET PO PRN (22:23)
[2020-07-30] MEDS: THIAMINE HCL 100 MG TABLET (FP) PO SCH (22:23)
[2020-07-30] MEDS: MELATONIN 5 MG TABLETS PO SCH (22:25)
[2020-07-31] MEDS ORDERED: chlordiazePOXIDE HCL 10 MG CAPSULE PO ONE (05:00)
[2020-07-31] MEDS: METHADONE HCL 40 MG DISPERSABLE TABLET PO SCH (05:09)
[2020-07-31 08:54] VITALS: BP 130/73; PULSE 98; TEMP 97.8
[2020-07-31] MEDS: SULFAMETHOXAZOLE/TRIMETHOPRIM 800MG/160MG D.S. TABLET PO SCH (10:13)
[2020-07-31] MEDS: PRENATAL VITAMINS W/ FOLIC ACID TABLET (FP) PO SCH (10:13)
[2020-07-31] MEDS: hydrOXYzine PAMOATE 50 MG CAPSULE (FP) PO PRN (10:14)
[2020-07-31] MEDS: NICOTINE 7 MG/24 HOURS TOPICAL PATCH TD SCH (11:07)
== END 2020-07-31 11:41 | disposition home or self-care (01) | DRG 773 ==
LOC: YASAS 10:02 → Y6N 11:47
PROVIDERS: ADMIT Allergy & Immunology; ATTEND Allergy & Immunology
PROC: HZ2ZZZZ Detoxification Services for Substance Abuse Treatment (ICD-10-PCS; principal; 2020-07-26)
DX: F10.230 Alcohol dependence with withdrawal, uncomplicated (principal); F11.20 Opioid dependence, uncomplicated; F13.20 Sedative, hypnotic or anxiolytic dependence, uncomplicated; F17.210 Nicotine dependence, cigarettes, uncomplicated; F19.280 Other psychoactive substance dependence with psychoactive substance-induced anxiety disorder; F19.282 Other psychoactive substance dependence with psychoactive substance-induced sleep disorder; F41.9 Anxiety disorder, unspecified; F32.9 Major depressive disorder, single episode, unspecified; R03.0 Elevated blood-pressure reading, without diagnosis of hypertension; L02.31 Cutaneous abscess of buttock; B18.2 Chronic viral hepatitis C
CPT/HCPCS: 36415; 80053; 85027; 86780; C9803; U0003